=== PATIENT | male | born 1985 | race Caucasian/White ===

== ENCOUNTER 2025-05-06 09:04 | Emergency (ER) | payer BC, SELFPAY ==
[2025-05-06 09:06] VITALS: BP 143/92; PULSE 92; RESP 18; TEMP 36.8; O2SAT 99
--- NOTE | 2025-05-06 09:28 | ED.VIS.LOWEX ---
HPI History of Present Illness HPI Narrative: Patient presents with left knee injury that occurred yesterday. Patient states he was trying to get onto a horse when it bucked. Patient states he was thrown off the other side of the horse. Patient is unsure exactly how he landed. Patient noted pain in his left knee immediately. Patient states it is mainly over the medial aspect of the knee. Patient describes it as sharp. Patient states it is worse with weightbearing. Patient states it is better with rest. Patient admits to some tingling into his knee. Chief Complaint: Lower Extremity Injury Informant: patient Occured/Mechanism Mechanism/Context: Yes fall Onset/Context/Timing Onset: Yesterday Context: Sudden Onset Timing: Continuous Quality of Pain: Sharp Location: Left knee Worsened by: Weightbearing Relieved by: Rest Associated Symptoms Associated Symptoms: Positive for Parasthesia; Negative for Weakness or Loss of Funtion [facility] Medical History Hx of pneumothorax Home Medications ?Medication ?Instructions ?Recorded ?Last Taken ?Type hydrocodone-acetaminophen 5-325mg 1 tab PO Q6H PRN PRN Pain 3 days 05/06/25 Unknown Rx 5mg-325mg #10 TABLETS Allergy/AdvReac Type Severity Reaction Status Date / Time aspirin Allergy Swelling Verified 05/06/25 09:05 ibuprofen Allergy Swelling Verified 05/06/25 09:05 Surgical History History of lung surgery Social History Smoking Status: Never smoker ROS ROS ED Constitutional Constitutional ED: Reports fever(s) and subjective; Denies chills Eyes Eyes: Denies blurry vision or change in vision ENT ENT ED: Denies rhinorrhea or sore throat Cardiovascular Cardiovascular: Denies chest pain or palpitations Respiratory/Chest Respiratory/Chest: Denies cough or dyspnea Gastrointestinal Gastrointestinal: Reports nausea; Denies vomiting Genitourinary Genitourinary ED: Denies dysuria or hematuria Musculoskeletal Musculoskeletal: Denies back pain or neck pain Integumentary Denies abscess or rash Neurologic Neurologic: Denies headache(s) or weakness Allergic/Immunologic Allergic/Immunologic ED: Denies mouth swelling or urticaria EXAM Physical Exam Const Vital Signs: 05/06/25 09:06 Temperature 98.3 F Temperature Source Temporal Pulse Rate 92 Respiratory Rate 18 Blood Pressure 143/92 H Blood Pressure Mean 109 Pulse Ox 99 Oxygen Delivery Method Room Air Positive well nourished and well developed General Appearance ED: well developed and NAD HEENT Reports moist mucous membranes Neck full ROM and supple Extremity Extremity Narrative: There is tenderness and mild edema over the medial aspect of the left knee. There is no bony crepitance or step-off. There is no effusion noted. Range of motion is limited in all motions of the left knee secondary to pain. Extensor mechanism is intact. Strength is 5/5 bilaterally in the lower extremities. There are no sensory deficits noted. Neuro oriented x3, CN's II-XII intact bilaterally, moves all extremities and no sensory deficits noted Sensorium / Orientation: alert Motor Exam: strength 5/5 throughout Psych mental status grossly normal MDM MDM MDM Narrative Medical decision making narrative: Differential diagnosis includes ligament sprain, meniscus tear, contusion, and occult fracture. X-rays of the left knee will be obtained to assess for occult fracture. History & Record Review Additional record(s) reviewed:: Prior labs Radiography Diagnostic Testing: Clinical Impression(s) from Imaging Studies Knee X-Ray 05/06/25 09:57 IMPRESSION: No definite acute abnormality. Correlate with point tenderness. If there is point tenderness or persistent pain despite conservative therapy, MRI would be suggested to evaluate for any internal derangement. Reading Location: [facility] X-rays of the left knee were obtained. There are 4 views. On my independent interpretation, there is no acute fracture or dislocation noted. There is no loose body noted. Radiologist also interpreted the x-rays and agrees. Treatment and Re-Evaluation Narrative: Patient was given a dose of [place] here. Patient was advised of his findings. Patient given prescription for short course of [place]. Patient was instructed to ice and elevate his left knee. Patient was given crutches. Patient was instructed to follow-up with his primary care physician in 5 to 7 days. Patient was advised that if his symptoms persist, he may need further evaluation such as MRI, physical therapy, or orthopedic evaluation. Patient understood and was agreeable with the plan. All questions were answered. Discharge Plan Triage Chief Complaint: Lower Extremity Injury ED Provider: Patrick Orozco Dx/Rx/DC Orders Clinical Impression: Left knee sprain, Fall Instructions: ED Knee Sprain Ligaments Prescriptions: New hydrocodone-acetaminophen 5-325 mg tablet 1 tab PO Q6H PRN PRN (Reason: Pain) 3 Days Qty: 10 0RF Primary Care Provider: Care Physician,No Primary Referrals: [facility] Doctor,Out of [Non-Staff] - 5-7 Days Print Language: Maltese Disposition Disposition: Home, Self Care
--- OUTSIDE RECORDS SUMMARY | 2025-05-06 09:52 | XMS RPT_ITS | CCD ---
Author Organization [facility] Care Team Providers Care Pier Master Name Role Phone Ashlyn Meredith Unavailable Unavailable Bernardo Campa Unavailable Unavailable ANTONI ZAMORA Admitting Unavailable ANTONI ZAMORA Attending Unavailable Provider, None Primary Care Unavailable Provider, None Primary Care Unavailable Drew Medrano Admitting Unavailable Drew Medrano Attending Unavailable Lev Allen Admitting Unavailable Lev Allen Attending Unavailable Provider, None Primary Care Unavailable Christian Martines Admitting Unavaila ble Christian Martines Attending Unavaila ble Provider, None Primary Care Unavailable Allergies Allergy Classification Reported Allergen(s) Allergy Type Date of Onset Reaction(s) Facility (1 source) aspirin Drug Allergy 07-08-2017 [facility] Repository (1 source) ibuprofen Drug Allergy 07-08-2017 [facility] Repository Problems Problem Classification Problem Date Documented Da te Episodic/Chronic Anal and rectal conditions (1 source) Other specified diseases of anus and rectum; Translations: [OTHER SPECIFIED DISEASES OF ANUS AND RECTUM] Onset: 07-27-2017 Episodic Results Test Name Value Interpretation Reference Range Facility Coding Summaryon 12-12-2023 Coding Summary HTMLBase 64 AscqtrawJRs2aXz+PGhlYW Q+FG4DZFVnI21zqAUajY0k D7NOMJlBDneeTHXJCFtSMz LpbmOvOI1sqFKgWTQo IC8+WI9gBJOkNexqgXUfy8 Z7mPB9O64dzq4lTRowjCW9 HFNdAxGwyfooo2sdfJm5KR cuNmluOyBt HBVtnU84LKB7lL21Kq24rI VgaWRxx9tynEp0HkIeWBOg YQG5eWcqQWklc5AoFFDzS3 4mjTKvz6N6 HVDnlByueXGbLbJmwMN9rZ 2pXIodakfif0yrjhbdQlj4 hg98bYTrw2R7lET7G3Zexf F6OJJxjSTc BmbezIDTaV4rasxzi0ydtl elGmHvNGIyNIj2RTk5VAVx aObyZzMzBX75HZS2MYFxlc ZqE7HfGFDx vWfoPmO1e6T2Bd7DE5XUNe ddU4PVAZJCCMpzhAE+PC90 dp65P8KeDokqRcc8FZDfBK T0qOD9oB1o BFXaDQaoy9Z5cQX5B4Suix Jply3cl7lrVXErGKwxB53y dTRzi4Z9GJBnrMU7EUGhvC kmIuDrqP81 Oyc+YLGluSqfc4IoToumb0 cpe6twiPy1TbdaZIOvelXw cQszLOB1i7FnLt6nSBZkiL Y1zIS9pW4q KmOrNqJ1POjnR191TlOllC LuUfvuN18uQ2WxjUO+PHRy Dsz3EQPfnVlkTN0dU9EzWZ RpbmctbGVm eDejAM2qHLUqjsdzNWXtrI 1aIUKdC2q6UhJlYrY0OPel R4OqOCRfuvvkXu35hS4kBg YnGlL7MLmi T9NjrmX2PZQcmNRtIDjtYQ K8T86ov5U2RSUdYFVmFTZ0 pUG6pT3eqWxizqqhkOPgvD sgdmVydGlj RHjaTXbwK618XZMbtYpoBc NvZGluZyBEYXRlOiAgMDQv MDgvMjAyNDwvdGQ+PHRkIH G3hYoqYSSh xHQiHWhqKg8iqIgmuBrpKD 5eMTObndibEEKtjX1gUXDb pZMgxMjwBZ8oHMBqxygon8 50OqPaFCG3 PRFesQVqZ1ZhxS0dPoQoOQ EwFJIlX5UqlJNtMZjkA903 DDfcXiC1GPSlhqMgZ9HdWD FsaWduOiB0 n1N4Nl6Ha2CorgiyK7UnxU ZoEyIwRmsuQRq7K9MiHiut dHI+ZH87IFPoCK95OYa2AV U3tXkjTYzk PELgJ5SyjW6uDkVeSXNkOT RkOyc+PHRhYmxlIHdpZHRo EQbvCZWfSiSolBusAP0eKr 9yZGVyLWNv eEsaoSGrZsFks0maCSJjUL doSJ5fxIvxE0HcoYU8JLUu o5p4Va78C18vP0DnvXG+PG GclDO0pLV8 pQ5lXaDoNyJ0QKkhU383Vk YjaONyJiwii3lef9wzfWl7 OzC5OBFhboUccGtuQAB0m5 VvLk16G27k IHdpZHRoPSIxNSUiIHZhbG dotr0fwB8nCo5+PGNvbCB3 cRS6fA0uPsAnTaC8ZObcC7 49InRvcCIv Bpzdz9dhc8wavNl2RgQgEU DejkXylRzuCHV2x5IvWj00 C0TqtZwdu5BkQoy2il01sN Wlt5U1uLQ1 R1QtHZJarlhfeXLkqYecGO 4tYUJzgrycHZCzvM1eDYUb W1m4FzWqXjP9JTdiM9Qrwq A2VSUceVMc UESuaUFDuY1pqpcvx4xmaq ybWcFcJAEsRRq8HJa8JECv lZnbNmOnTPL2DvJ2SGR6dO HqoY8qcAor uxsdqU0hMbu+EGH8xPUevI JUKA2fMqifrLM+PHRkIHN0 wGseZBrpABHdhE4zXHJhY7 x5QkShZtB8 PSyfL7UcxqD8RFEklFLlKE YtkPROuV4ibgrrs8pfzihj YqDwNUCnNRj2HWg9PIXdhA duOiBsZWZ0 IzR2ZRC6sVRczN8knTzrgi nyuR9oWyt+QmlydGggRGF0 RJz8Z2TiWax2MVTlfFguBW 0ncGFkZGlu Wb6doZmtlMapJR0aHNQdwl trd151UaNzb4vsJJBilXOw JGajJOG7R57iz2A7GQRhZB GzVOH5yMY2 cV0nwIulzwebzUMqpHnjzn JgjSxqKKqsTFcqV137MAJa mMciAiEuNAi0Y7LzBzq0DF YmuDmhLH4e eGKoFXluSy3oxLhbgGpzCJ 1oHEQdzahxc149NiEqi9lt OJAymKDjTLnyLBN4K35ua1 J0EACvRFDd UEJ7wXW0wN2joCelfefywT VmdDsgdmVydGljYWwtYWxp C664FAWpqXolFmQxyZe9V8 ReMtm6ZRUs zZfdNH5ipWCyTCiwGi8gcC kpvMmmCP1wFEXazkzgq048 NhChi9iuAFBomALxVMltNF H0K72vl9Y6 IYQlRIUrVCW7iYS5fW1jyX lnbjogbGVmdDsgdmVydGlj OSodTWlsK980OAPisZbfEf BhdGllbnQg VAkrRSk4Z6ZwDipoqEP+PC 70MDVuAX45wLZbkKAoo8ti jQt6LlNjSGRuBKB1iHvkYM vqy2PnVGCz Z26rxYQgd7O8BQPojTweyL RfBmXrmRT9jI0pDZuqwccq m8hjjrofLxcri2wbpp79gL 61Q83gPFyp ZHRoPSIzMCUiIHZhbGlnbj 9gsX6cWk3+WONnfVA2wGT6 qM8dWMWsFkZ6VFfeW517Pj RvcCIvPjxj z5ohh4iemUw9XuR9GXQwfl LhxBelHAF2t9NjOt77H27w IHdpZHRoPSIyMCUiIHZhbG ashv1usO3y Ii8+GPJgeUK9aRA8oN1wKn VdVvL9JTrcD407NjRomFZv VivuU73dC3YvrOZ+PHRyPj b7SZOukHfz CQ2fcMYiFOgdXj4zNPA7St IgReEiYPwqY0GyZSNcgpit qlawdUR3DRQpKQYnrV95Fu 9udDogMTBw bWGZqO7ucbwnl9ocxgpgSh ObZXBoSCk9GCm8ADVzaSiv PcYgHCH4RlZ2XCQ3iWWjlR 1hbGlnbjog cE0aT5IsGKApzlsuHy85yJ 6fSkUhTiB5PCwpXoe+S1JB TUVSLCBNSUNIQUVMIEpBTU IJWD71XP44 xRRdp6O9jIG8L9QvOZBahl cmkfsseGK5CLEhWOYvuK64 dKTlXAzdVh9yp4L3e487RR RzEHJfvK81 Gl7pdLbkVZTtyAWTtB3fnw gze1dtxcpdYzLgTYDqGWg2 ONl2QXKvtKkcQoDuMTQ0Tw G7DWZ6nETb vW4mrDlhvhushY8fFhu+MD AuWvqdVBl0LTfdzHC+PHRk ZZD1aEcfMAbxKCIekH6yRV VmQ5w4WpPi PkM3OTzkG3UbRFSzkqwjKs 69pY8wQzPsNmB6HYscN0Pl jwG0PGSviLTwSRhrPZH3I8 5mp3Y1VSEg NXVkJBT8nIA7lN5mbTlxcv ogbGVmdDsgdmVydGljYWwt KWvcV863MREpwRijMiY2VH vuVTLoXP12 QJ53mSKxq3F5bXS5D1NhCB MtcyjpxvsnpUA0GXFaIYPk hS37eDLmTBxuGc0hv0A5m3 06IDAuMDUw xJ84Ci3exRacKPNwiQDUgS 5kzdprw0rbttfmVpDaWXUg PQe1PCx6QDMtkCipHjKmGE I0PqK3PGW5 fNTxpH6eyCothdntwP3vWp c+TUFMRTwvdGQ+PHRkIHN0 sSqmMVdaVIBldR2ePNEbL1 h5XuMzGtF3 WYixZ2RjVHXtsnypVs24lD 2sZwWfRsI9NVdcB7AnkkP3 OJTglHDqIJleVJM7P04cf3 Q7CZBmMNNz ZHJ8dIQ1jY2lkFlvprjlrD VmdDsgdmVydGljYWwtYWxp H396DVFkdIckHgZxWLVvNZ 5jeTwvdGQ+ AV65vo01V5HoOwxaIxc9CF KiRXE6yBR0eW0nBNNdZMip v2Y6oGS2W3GgqfTkfk4kq4 xsYXBzZTog K45ngNBit6C6PHYeuOQ5AD AipKxiJdDhkL63Kdz+PGNv xUcib5JeXgums7cpt3elyI x0GqMtYMLu drOglQoaAEI7o3NvGi53R0 9sIHdpZHRoPSIzMCUiIHZh yLnejr3fjZ2sCi7+PGNvbC P2xLF8tO4q JeRaRrV8AIcbB472TlVioB UqVyzhb6djz3xiiBi9ZfNw QBCnqcGjsTxgTGD8z4GbJf 80O7PfeXch k2MsNks2xq79uQBec6M1aU L3Z9ZnGOAbzvsagNAfrIqw HT9qHRSrorrrPABizM4nKY PdY3v5VhWu WkL0EKnoZ3VwjaI2TXVobY EyEFOrhOYNuY9homexs2dr vubvItJqOKNeXNb5BXw5ZM FsaWduOiBs UEG6XmM3WBI2yYTojO5ibF kvvyqbtX6vDtg+VDz9t2lf pNLxIZ3yaHG4RU63MK17sC Rnq4E5lQD0 E4BhYIJkqohwahbnhRK4VH JbQPRyjX97Dg2txIqnDd2m TWRtRBG3DIAnnPPgQ2SuiR 9yOiAjMDAw GMPdW8YtaFUnYIjbB531KO ueFcG5YTWyfgCyL0AkIIRw iEjrWlD7m9M2Uv4HUC72VF 01AB23xMNc g5Z6aHX1P5VeOAVzuajdbr olsNR3GCPeEZOocU88Wl1z zLaqBc7uRKGkBQO0ASFelY TdP2DaeC4h IuYiJWHmFMLwR2CcpGSzYN piJ042TGhvKfP7GVApfuHd G7ZwBIDvxYmvXqO4w1E1Wt 1SRn72QS27 NU30nRJjn8H6rED5C0UsFG DxbihzdloymZV1XOFfTKLw wD01Se7uzAdgNk8lQNBcFM O0CTJeaJVd P3LibV4uTzHqVDHoLTIxP4 OkuPEaVQcgA507YOxbSqS6 UFSsmsMqE2GyTEAhjWjzLi T6t3Q9Se4P BQtctnc0S9BkVilfsQX+PC 26DXAlHK34nFDbwBPak1lu mBw2EnJyVXVtWSP1qDxpFG tnc6HdFLSm Y29 (more content not included)... [facility] Coding Summaryon 12-09-2023 Coding Summary HTMLBase 64 RthvxkxrPPp7zGj+PGhlYW Q+VL0WVRUnQ91pxNMqnA1f H4HJZRmTTneyMQNEHTzRNb BbkpLxQZ3rrFOjIATw IC8+OS7dODUwTfhlkSTwh0 G3zHV5W23wql7mHHsejSR6 JIKdWqCaazcok2kroOv0IX cuNmluOyBt XCVjsI43BWV2uH36Cv85jK IbnJSij9jaxLr2TvWcQWYy IQN0pQtuTUudm1JlLENrD8 6spUTqf2Y6 POBdoJzfoWAqNdPnzJW5eA 3mBAmmedhvr7kxeqzsCip4 jk87hUVmg7H8aZJ2L4Fywh U7BNTtcXQb IgyjyFNOtY5jvftkn3dope naLkFjRQHdODg5MTj0CICx yMipCgHqBW76MEV0NMSynu UyT3AlIOXk mHnbOyF9f1J6Gv1RK6UKJs lmE2OUGXFUIOfiiSW+PC90 lg42D8ZcYbkaZcr5DPMzBH W8zMY7kN7v VUSwICnmd4V0sLV5O8Uzus Gshe8dr9yiHYUuQLyzN10q lKNol4Q9AMJwaNG0WYIgmS nrPqHwxU13 Oyc+PDFgkRkts5SlVivuc7 fwo2epgCb4SyczCTYvdkYg cIdzHLU0g4BkJb0uSTJxbA J4eXG0lU7i JpDzDcL2ETvzO925RxMjrW QgKuudM05qO2XbcJG+PHRy Iwv7YWEbjIusMU5eY0QwQN RpbmctbGVm gXlgJH9uEPYapdflHZQkmX 7rOETeC8n0IpUgTvZ3JTjg F8KnFBLjdvcgLf58gY3cJj IkMtE5GLnk B0DfodT3WNTjaGHiFQqyCZ R5H16uh7A4KPJdNKOhAOR2 eRK5hZ4edZyzaotqxRVyhS sgdmVydGlj ENtoRSwmA197NVTagLlmEd NvZGluZyBEYXRlOiAgMDQv MDUvMjAyNDwvdGQ+PHRkIH W0rYapCAHi xLSpGOapAu3nwSckfAyvGC 0eVLIvtgpdBFXphL6wUGLr xMXjoZodGH7gPHHuamdab0 17IbXmEYE9 CUGyhUAuA1WbtW7zCvUwUX LiRLQiY0KdgMMgIJohC191 UZskMaB7FLSrgiRxV7LjQQ FsaWduOiB0 s1R4Ji9Vk7NkzgbaJ6GqbU ZcDaJvNonyGKx7A4FhVeic dHI+YY70PLZwLM74KBs2RK X2qMwmUOwq TMRnK4LlyV8hFxIyBYZnII RkOyc+PHRhYmxlIHdpZHRo UEhqMWBmCdNlaMkhFO3kTh 9yZGVyLWNv eOqueNPlIzCot6lgLMOoTA muVW4orVaeV6OgtKT7IRTl d6u1Tn77J91nR0AmzOB+PG UxmXT0lBI8 nN9rBpEyBuA1XYvoS667Gi OwcDOiSuqcs0imm7ypnQm5 JvU9NDTaqbRhtKfhRNP3k3 CaDx92K15h IHdpZHRoPSIxNSUiIHZhbG uelm0mhV5dTe3+PGNvbCB3 rJY8fT2bOpGeTyY9FCykL2 49InRvcCIv Gmzfr9fwp6drnMv5NvDnKZ CwscToaPgrJXM4t9AcYl85 K5HfgSevn9ChJbz5cg18hN Vsv5S8vMR8 H6HmBOJmlmfcuTGpvOyoDQ 0kXAPlbrviOIKdvH6tBGJw E2t1MhVaKfV2LRdtS8Jduu G3NPFpoUOy MVJlfYDUuM9eczvcs1iahu euUcLhQTKxLMb9YJl5IKKp zBobUrHkCZI7WgD9RJX5kT XzzL8luYlb pclnrT9aCjb+QCX2tYTpvO QBQB2cYcbmpON+PHRkIHN0 mWttCKclBKAfjL4lXZDyX7 v6AaAqVeQ6 JEzvS2DurnD0SSIgiEBeYL EikLUUaM3yghoxg0ejuegm MkQpDYPaKNw8ZUq7JHJzdP duOiBsZWZ0 TlJ1JWK3zMYkoR8ttJyded zbrL6pCnu+QmlydGggRGF0 HGn2T0MmDio1WWOduBviVS 0ncGFkZGlu Zd9qiCywkOraJF6rWKVxcq jsm395GcAie5auRDDrmYXk RNlrRYO9E82es4X3BANzMR ObJOI3yDD1 vC3nrYfjeginrCBugXntmx AwgGvqBJjpTTcsF631QYNc wZcbHuHnGAw9M1UoBlh3FS ViiOdzUB2j rSKtVWmcVk9whIbpbDapQO 9vXOHurfvxt993AtXif8zl ELHidESyTTewJDT5N68gf1 B3XKLdXDTz SSB8xIH0cP0okIqymeurkZ VmdDsgdmVydGljYWwtYWxp U463VIZtxUksEyGscSo6Y7 XpFuy3OSSw hNpvJP4agHNlEIhnXg1gvR vssHoiNN7iALKachfuv072 JcBpo9leSFQrfVEfWQnuHC C3P94ys0T9 RBMyWPTnTBA9gBP9eP4wgO lnbjogbGVmdDsgdmVydGlj EMriQCfgD569LJPqzEyiSa BhdGllbnQg ADzvPCq7L5BwMvkriVX+PC 77UKNuKJ87vBKrcGOhs9uh bNb3SyMhEYSiUET0tXtmTI dir7UyJZPz Y10ncADby0K6WFXoxWrpjG MdDuBgqOV3qM6xMIimuxla h2erxfftUvjez2vnpa46jC 72T29oVRyo ZHRoPSIzMCUiIHZhbGlnbj 6ibQ8wYh0+YOWptJD5rEF2 xK1hEINkZqD6FXijA486Af RvcCIvPjxj p0kdp0omlIp0DbY3HLImgs JtpSxjUWY0o4NgVf40P02m IHdpZHRoPSIyMCUiIHZhbG zvep4afL9p Ii8+RMWgxLU4qLO6pV8vOm AgGbA2JYyvQ313BrYjwSMl ImzfU06dT3ZtcLK+PHRyPj x6QFZwwAag RA0qdLVjKMuqQi3nJXQ9Fk ZyVyEqYGieV1ZkMYCatbye svlvbXY9GOLuJXRsrB36Zh 9udDogMTBw cNZKsA2dmoytr0okqpvdCa IdDNYvEVp4CKo2FPLcuIql LyUqHTN7ZiW6NES7jYFttT 1hbGlnbjog nJ5pW2OxYWAguwgzAd26eN 3bCwQtJaR8RWcjIle+S1JB TUVSLCBNSUNIQUVMIEpBTU AJFP42PT50 uJAei7A8sAZ8R0IuMOIxez ummbuywII3KSKeEZIosX44 dHUaQQklBx4fc9Q6h429MQ JzFQFrwI81 Oy0rqCouCBZimTYYaY3zyd zlr3ppazamQjZmAOXzHFx5 FZz5JVLgzDpkQzHyCYA2Hu M9QBJ9tFWt eS9buYkdmfmmiZ2zIrz+MD TbTrrjKKp0WSqhkRW+PHRk NVW8cLviDVcmVGGrjE4cMD TaP9e7RbVz GaU8IKsiU1LhGHPvkjljOh 86aL3jJsSrDiV9ZHgkO1Gu kdI8TLHarHHySOxaGJK7A3 9ed0D2JOBg RYBiDDW6gOB8gW8nsZsacj ogbGVmdDsgdmVydGljYWwt EJtzO721HIUvkVfxVdU0FH gvZZMxED53 RC14oKXaa1J4dIG8W4AeJA UhvbnbaswioTL8UQMtKJEm aM77vQYpLBiqWb1ba3B2f9 06IDAuMDUw uE62Aj2ibUskREMhtSFRgH 8zsfhio7ygaedaQvCnHVJm YLz3OFj3WINmxQziRbMeAU J4UdD2RIJ5 wSHujI3bgXrvyzecaH6lXj c+TUFMRTwvdGQ+PHRkIHN0 xUluCQovIAJldU0nCJXxJ1 g4MrOqKcT5 LKrjQ9DiLEZwtopqDa63dW 2wSzZhDvT2LNtiG0ZmyrJ9 OTOxyRXoADueFQM7U11fn3 N4JQMqUVTo TVJ1uIM9aX0tmTzjfgkflU VmdDsgdmVydGljYWwtYWxp L287DWLlzRseFz4NFN60IL 83G0RpNmck dGFibGU+PHRhYmxlIHdpZH BnFOuyXKXgMvCujRizVN1v Br1rIECsRDKpxPxcsCJiHk Act9kiQGPm QUwaFW5wmFjvI1DgpJF2VV Izl1d4Vq10R13sL1KdqFW+ CSHxpYQ7rZV0kK5eKuJrZv C7YJhcB498 FfYxrWFoEqhtb7qud2kxxL f5UvTaRYHkrmDsqNbsXTW6 v7MgTt33H43fYBqrZLZiMC IyMCUiIHZh tIpgtr1mnB5pXz6+PGNvbC D0tCY2mL6xLnPpFhU5EDia E618AiUlaISzRhyrA64uY1 JvdXA+PHRy Jeo6GJZvdTlaII7leLMmJV xpNb9iMHG4GxPsQzJfMTgx G0TfKCDgwwfsqmxnzWX2MC JxKRFkiO09 Ai8rfDvvJm2cGGXaJLZ9AV ZxwQRgX9IwhU6qIvHlJBOi VYKdC7DrdRPhHXvjL310UZ wqEpD0XSRc txEjV7KkCMUbdLypQdY3w5 A7Ku6HvTfoaULgOU6fGtBh KVj2P2XfSvm5NRStaJtrHO 0ncGFkZGlu Xu3mtAgbgKyfBW0aYAVwfx ffl069MzPdl4ixATUwvJBb EYssERG1K75le3M7NEHvUT EfVRZ5bKB0 rD5trErigcuyvBQmuYgmnm MxnDpwUEipOWglT357QTQo kFjzZvMHIlg7B5GkBie6SI HzgXdcSU7v zNBrLRmcOg9rpTzcyAbbKB 4uTUUdzzfic828SyCzd8km XQUbeTNzPZobNQP3E51dd6 C0SLByNLDv KCJ2tNP3jX7zbAkgtmxdkD VmdDsgdmVydGljYWwtYWxp F582GDLvoKlyCh5GRmz3D3 FuDru8NPHj qVghAD2rrQWjNAbpDx6apS berMjsTD9nUPQasfrtt933 JhVbt4rfTCAtyBOdWQcsAH H4K27ku2V8 XOQoGABjMBH1hBR6rE2cqY lnbjogbGVmdDsgdmVydGlj TPjdYHytK966USMraJzsSv BheWVyOjwv dGQ+TC56ip34G9VjOwxpBj e7OQEjSLU5rKJ8dE1cZGOl BEmsi8L3dRB9Q6GvpvIduu 6jo6rbYTZx ZTo (more content not included)... Normal [facility] .Auto Diff on 12-05-2023 Auto [place] % 9 % Normal 1-12 [facility] Comment on above: Performed By: #### 1 [id number], [id number], [id number], [id number], [id number], [id number] ####[facility] (DEFAULT)[address] [place] [address] Baso Abs# 0.1 x10 Normal 0.0-0.2 [facility] Comment on above: Performed By: #### 1 [id number], [id number], 9552911, [id number], [id number], [id number], [id number] ####[facility] (DEFAULT)[address] [place] [address] 71717 Basophils/100 WBC (Bld) 1.5 % Normal 0.2-2.0 [facility] Comment on above: Performed By: #### 1 [id number], [id number], [id number], [id number], [id number], [id number], [id number] ####[facility] (DEFAULT)[address] [place] [address] 23153 Eos Abs# 0.2 x10 Normal 0.0-0.4 [facility] Comment on above: Performed By: #### 1 [id number], [id number], [id number], [id number], [id number], [id number], [id number] ####[facility] (DEFAULT)[address] [place] [address] 01301 Eosinophils/100 WBC (Bld) 2.7 % Normal 0.9-4.0 [facility] Comment on above: Performed By: #### 1 [id number], [id number], 2325724, [id number], 52067199, [id number], [id number] ####[facility] (DEFAULT)[address] [place] [address] 25496 Lymph Abs# 2.5 x10 Normal 1.3-2.9 [facility] Comment on above: Performed By: #### 1 [id number], [id number], [id number], [id number], 87529958, 9193387, [id number] ####[facility] (DEFAULT)[address] [place] [address] Lymphocytes/100 WBC (Bld) 33 % Normal 14-48 [facility] Comment on above: Performed By: #### 1 [id number], 5905225, [id number], [id number], [id number], 0153658, [id number] ####[facility] (DEFAULT)[address] [place] [address] Larimer Abs# 0.7 x10 Normal 0.0-0.8 [facility] Comment on above: Performed By: #### 1 [id number], 0831908, 7903507, 6851517665, 92794661, 9728920, 5149785247 ####[facility] (DEFAULT)[address] [place] [address] Neut Abs# 4.2 x10 Normal 1.5-9.2 [facility] Comment on above: Performed By: #### 1 [id number], 0249960, 0971096, 3483012916, 83890112, 6761646, 7085693380 ####[facility] (DEFAULT)[address] [place] [address] Neutrophils/100 WBC (Bld) 54 % Normal 44-88 [facility] Comment on above: Performed By: #### 1 [id number], 8295039, 2937967, 7741752208, 53696318, 5734756, 3780099367 ####[facility] (DEFAULT)[address] [place] [address] BNP.on 12-05-2023 Natriuretic peptide B (Bld) [Mass/Vol] pg/mL Normal 0.0-100.0 [facility] Comment on above: Result Comment: BNP results greater than 100 pg/mL are considered abnormal and suggestive of patients with CHF. Higher BNP concentrations measured in the first 72 hours after an acute coronary syndorme are associated with an increased risk of , myocardial infarction, and CHF. Performed By: #### 1 [id number], 3281167, 2083516, 6758429090, 21122538, 8588487, 4325405911 ####[facility] (DEFAULT)[address] [place] [address] CBC w/ Auto Diffon 4 Erythrocyte distribution width (RBC) [Ratio] 13.5 % Normal 11.5-15.0 [facility] Comment on above: Performed By: #### 1 [id number], 2341170, 3471807, 7046959964, 48508279, 6489967, 1785271101 ####[facility] (DEFAULT)[address] [place] [address] Hematocrit (Bld) [Volume fraction] 42.0 % Normal 34.8-51.9 [facility] Comment on above: Performed By: #### 1 [id number], 8097393, 0505999, 2184943161, 84350156, 7960578, 5765901891 ####[facility] (DEFAULT)[address] [place] [address] Hemoglobin (Bld) [Mass/Vol] 14.3 g/dL Normal 11.8-17.7 [facility] Comment on above: Performed By: #### 1 [id number], 2440371, 4397156, 6572549395, 54420772, 7827061, 2215209199 ####[facility] (DEFAULT)[address] [place] [address] Man Diff? Auto Invalid Interpretation Code [facility] Comment on above: Performed By: #### 1 [id number], 2259458, 0702597, 2588231000, 20443529, 8678814, 4694433287 ####[facility] (DEFAULT)[address] [place] [address] MCH (RBC) [Entitic mass] 30 pg Normal 24-34 [facility] Comment on above: Performed By: #### 1 [id number], 6816637, 0829788, 7514113483, 87110570, 8124637, 1387785165 ####[facility] (DEFAULT)[address] [place] [address] MCHC (RBC) [Mass/Vol] 34 g/dL Normal 26-37 [facility] Comment on above: Performed By: #### 1 124133795, 5338767, 0400657, 9076798710, 44989863, 7924992, 4921143702 ####[facility] (DEFAULT)[address] [place] [address] MCV (RBC) [Entitic vol] 89 fL Normal 81-100 [facility] Comment on above: Performed By: #### 1 017288304, 3259018, 1587701, 6370142855, 45261159, 2982193, 3721862882 ####[facility] (DEFAULT)[address] [place] [address] Platelet 262 x10 Normal 138-427 [facility] Comment on above: Performed By: #### 1 218677406, 7196942, 0541299, 6991563149, 20204839, 5806434, 0426105179 ####[facility] (DEFAULT)[address] [place] [address] Platelet mean volume (Bld) [Entitic vol] 7.1 fL Normal 6.3-10.2 [facility] Comment on above: Performed By: #### 1 831846335, 4645939, 9034440, 5734841209, 57683905, 7238530, 6364931037 ####[facility] (DEFAULT)[address] [place] [address] RBC 4.72 x10 Normal 3.70-5.30 [facility] Comment on above: Performed By: #### 1 342047756, 4355344, 1354415, 9305798696, 84570296, 3299362, 4113786200 ####[facility] (DEFAULT)[address] [place] [address] WBC 7.7 x10 Normal 3.5-10.5 [facility] Comment on above: Performed By: #### 1 269647588, 0186042, 8945971, 8541611111, 14493901, 6800370, 1002642962 ####[facility] (DEFAULT)[address] [place] [address] Standardon 12-05-2023 eGFR Non AA >60 Invalid Interpretation Code [facility] Comment on above: Performed By: #### 1 360737595, 7935717, 7531682, 3050525113, 01591908, 2086009, 3617506735 ####[facility] (DEFAULT)[address] [place] [address] eGFR AA >60 Invalid Interpretation Code [facility] Comment on above: Performed By: #### 1 167086289, 4296252, 7258382, 8023066665, 55790368, 5514412, 4220885255 ####[facility] (DEFAULT)[address] [place] [address] Albumin [Mass/Vol] 4.3 g/dL Normal 3.5-5.0 [facility] Comment on above: Performed By: #### 1 472084612, 3022299, 2691000, 1825332440, 63266065, 9180216, 5734932662 ####[facility] (DEFAULT)[address] [place] [address] Alk Phos 57 IU/L Normal 32-91 [facility] Comment on above: Performed By: #### 1 412044103, 6033444, 8894125, 5720707922, 18945312, 2602165, 5670682980 ####[facility] (DEFAULT)[address] [place] [address] ALT [Catalytic activity/Vol] 21.0 U/L Normal 17.0-63.0 [facility] Comment on above: Performed By: #### 1 107155093, 5608550, 1980608, 7571597931, 19060126, 2695461, 7603267700 ####[facility] (DEFAULT)[address] [place] [address] AST [Catalytic activity/Vol] 27 U/L Normal 15-41 [facility] Comment on above: Performed By: #### 1 800605994, 1152044, 3788253, 2557964403, 57400183, 1540863, 4561132239 ####[facility] (DEFAULT)[address] [place] [address] Bili Total 0.6 mg/dL Normal 0.3-1.2 [facility] Comment on above: Performed By: #### 1 982257190, 5995971, 5675404, 5639462827, 32054787, 4387724, 0495564303 ####[facility] (DEFAULT)[address] [place] [address] Calcium [Mass/Vol] 9.2 mg/dL Normal 8.9-10.3 [facility] Comment on above: Performed By: #### 1 575194820, 9781048, 1484046, 8232968367, 98336355, 3656981, 6861633509 ####[facility] (DEFAULT)[address] [place] [address] 31358 Chloride [Moles/Vol] 102 mmol/L Normal 101-111 [facility] Comment on above: Performed By: #### 1 487747551, 4486735, 5586853, 9116698938, 80488751, 5351192, 4349785075 ####[facility] (DEFAULT)[address] [place] [address]58 CO2 [Moles/Vol] 25 mmol/L Normal 21-32 [facility] Comment on above: Performed By: #### 1 442001924, 7753234, 7171290, 0644766348, 35507733, 8981211, 9710910680 ####[facility] (DEFAULT)[address] [place] [address] 18157 Creatinine [Mass/Vol] 1.18 mg/dL Normal 0.90-1.30 [facility] Comment on above: Performed By: #### 1 737658364, 0969427, 1328955, 9694249996, 97276233, 6877982, 6541700284 ####[facility] (DEFAULT)[address] [place] [address]3217 Glucose [Mass/Vol] 105.0 mg/dL Normal 74.0-118.0 [facility] Comment on above: Performed By: #### 1 417309320, 2561201, 5735106, 6586574204, 37128798, 6883488, 0433199473 ####[facility] (DEFAULT)[address] [place] [address] 29658 Potassium [Moles/Vol] 3.6 mmol/L Normal 3.6-5.1 [facility] Comment on above: Performed By: #### 1 277733487, 0016607, 9894061, 3398308902, 62068621, 5446257, 5712658743 ####[facility] (DEFAULT)[address] [place] [address] 49671 Protein [Mass/Vol] 7.9 g/dL Normal 6.5-8.1 [facility] Comment on above: Performed By: #### 1 535306297, 1796768, 7195504, 0127541610, 94846606, 2052711, 4247360990 ####[facility] (DEFAULT)[address] [place] [address] 56354 Sodium [Moles/Vol] 135.0 mmol/L Low 136.0-144.0 [facility] Comment on above: Performed By: #### 1 268013218, 3931425, 1925624, 3756331584, 59862207, 4554279, 6779950427 ####[facility] (DEFAULT)[address] [place] [address] 61666 Urea nitrogen [Mass/Vol] 24 mg/dL Normal 8-26 [facility] Comment on above: Performed By: #### 1 115036506, 5818032, 5378448, 5377194874, 84357874, 4181215, 2264799891 ####[facility] (DEFAULT)[address] [place] [address] 53104 Albumin/Globulin [Mass ratio] 1.1 {ratio} Low 1.4-2.6 [facility] Comment on above: Performed By: #### 1 641308486, 0599460, 8279202, 1044961225, 88403361, 6503196, 6936187751 ####[facility] (DEFAULT)[address] [place] [address] 10505 Anion gap [Moles/Vol] 11.6 mmol/L Normal 5.0-19.0 [facility] Comment on above: Performed By: #### 1 876736382, 9342157, 8212141, 7072646562, 16922928, 1571765, 6682073762 ####[facility] (DEFAULT)[address] [place] [address] 99950 Globulin (S) [Mass/Vol] 3.6 g/dL Normal 1.5-4.3 [facility] Comment on above: Performed By: #### 1 817708067, 2258061, 1322527, 6165855116, 20280190, 8424286, 1064256994 ####[facility] (DEFAULT)[address] [place] [address] Osmolality 274 mOsm/L Invalid Interpretation Code [facility] Comment on above: Performed By: #### 1 231104378, 2217239, 1698720, 6357799457, 70462705, 5583655, 2885284037 ####[facility] (DEFAULT)[address] [place] [address] Urea nitrogen/Creatinin e [Mass ratio] 20.3 mg/mg High 4.6-16.2 [facility] Comment on above: Performed By: #### 1 586938888, 4287664, 8512490, 8235610398, 30005768, 0731512, 5206384691 ####[facility] (DEFAULT)[address] [place] [address] Breakpoint Chem Normal [facility] Comment on above: Performed By: #### 1 839787229, 4688866, 6168548, 3684314913, 56939177, 5035635, 2945931753 ####[facility] (DEFAULT)[address] [place] [address] ED Clinical Summaryon 2023 ED Clinical Summary [facility] - Emergency Department [address] [place] [address] ED Clinical Summary PERSON INFORMATION Name: BASSEM DAWSON Age: 38 Years Sex: MALE : 1985 MRN: Acct#: Visit Reason: Shortness of breath; Chest pain; CHEST PAIN, SOB Arrival: 12/05/2023 18:58:57 Discharge: 12/05/2023 20:18:00 LOS: 000 01:20 Check In: 12/05/2023 18:58:57 Checkout:12/05/2023 20:18:00 Address: [facility] [facility] [address] PCP: Provider, None PROVIDER INFORMATION Provider Role Assigned Unassigned Lev Allen MD ED Provider 12/05/2023 19:03:19 Jamila Manuel RN ED Nurse 12/05/2023 19:04:55 VITALS INFORMATION Vital Sign Triage Latest Temperature Tympanic Temperature Temporal Artery 36.9 DegC Pulse Rate 59 bpm 59 bpm O2 Sat 97 % 98 % Respiratory Rate 18 br/min 16 br/min Blood Pressure /104 mmHg /104 mmHg MEDICAL INFORMATION Medications Given: Medication Dose Route Sodium Chloride 0.9% intravenous solution 1,000 mL 1000 mL Initial Volume 20 mL/hr IV Left Antecubital Fossa aspirin 162 mg Oral doxycycline (doxycycline hyclate) 100 mg Oral Allergy Information: No known allergies PHYSICIAN DOCUMENTATION DISCHARGE INFORMATION: Discharge Disposition: Home Discharge Location: Home PATIENT EDUCATION INFORMATION Instructions: Nonspecific Chest Pain, Adult; Hypertension, Adult, Ejru-kn-Uzzw Follow-Up: With: Address: When: Follow up with primary care provider Within 3 to 5 days DIAGNOSIS: 1:Nonspecific chest pain; 2:Elevated blood pressure reading Patient Understands: Yes - Patient/family/caregiv er verbalizes understanding of instructions given Comment: Normal [facility] ED Clinical Summary [facility] ? Urgent Care [address] [place] [address] [id number] Clinical Summary PERSON INFORMATION Name: BASSEM DAWSON Age: 38 Years Sex: MALE : 1985 MRN: Acct#: Visit Reason: SOB, CHEST PAIN Arrival: 12/05/2023 18:44:25 Discharge: 12/05/2023 18:55:00 LOS: 000 00:11 Check In: 12/05/2023 18:44:25 Checkout: 12/05/2023 18:55:00 Address: [facility] [address] PCP: Provider, None PROVIDER INFORMATION Provider Role Assigned Unassigned ANTONI ZAMORA ED CJ 12/05/2023 18:50:02 VITALS INFORMATION Vital Sign Triage Latest Temperature Tympanic Temperature Temporal Artery Pulse Rate O2 Sat Respiratory Rate Blood Pressure / / MEDICAL INFORMATION Medications Given: Allergy Information: No known allergies PHYSICIAN DOCUMENTATION DISCHARGE INFORMATION: Discharge Disposition: Discharge/Transfer to Another Hospital Discharge Location: [facility] ([place]) PATIENT EDUCATION INFORMATION Instructions: Follow-Up: DIAGNOSIS: Patient Understands: Comment: [facility] ED Note-Nursingon 12-05-2023 ED Note-Nursing Pt ambulatory back t o ED rm 4. Pt C/O SOB and chest pain that started a few days ago. 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 Pt is A/Ox4. Pt has a HX of have two pneumothorax in 2008.Pt is stable with call light within reach. [facility] ED Patient Summaryon 024 ED Patient Summary [facility] - Emergency Department [address] [place] [id number] PATIENT DISCHARGE INSTRUCTIONS Patient Information Name: BASSEM DAWSON Age: 38 Years Date of : 1985 Reason For Visit: Shortness of breath; Chest pain; CHEST PAIN, SOB Arrival Time: 12/05/2023 18:58:57 Primary Care Physician: Provider, None Attending Physician: Lev Allen MD Comment: Visit Diagnosis: Diagnoses This Visit Chest pain ([id number]) Elevated blood pressure reading (R03.0) Nonspecific chest pain (R07.9) Shortness of breath ([id number]) The Pharmacy at [facility] is open Tuesday through Tuesday from 9A to 6P and Tuesday and Tuesday from 9A to 5P Prescription Information: If you have been given a prescription for narcotics, seek immediate medical attention if you have any difficulty breathing or any sudden status changes such as confusion and sleepiness. If you or anyone you know is experiencing suicidal thoughts, mental health, alcohol and/or drug addiction problems; contact the [facility] 28/03 Crisis Hotline -Text 4HXLD vs 006179. If you received any narcotics, sedation, or any other medication that causes drowsiness for the next 24 hours, unless otherwise directed: ? Do not drive a car. ? Do not operate machinery such as power tools, lawn mowers, drills, sewing machines, or stoves ? Avoid alcoholic beverages and drugs for allergies, nerves, or sleep ? Do not make important personal or business decisions or sign any legal documents With: Address: When: Follow up with primary care provider Within 3 to 5 days Medication Information: The exam and treatment you received today in the [facility] Emergency Department were for an urgent problem and are not intended as complete care. It is important for you to follow up with a doctor, nurse practitioner, or physician?s assistant baseball coach for ongoing care. If your symptoms become worse or you do not improve as expected and you are unable to reach your usual health care provider, you should return to the Emergency Department, we are available 24 hours a day. For those patients who have received Radiology results, the interpretation of your X-ray as given to you by our Emergency Department physician is only a preliminary report. The Radiologist will review your films and if there is a change in the diagnosis you will be notified by phone. Please make sure you have provided a working phone number so we can reach you if necessary. In the event that you had a lab culture while you were a patient in the Emergency Department, you will be notified by phone if there is a need to change your antibiotic. Please make sure you have provided a working phone number so we can reach you if necessary. [facility] Emergency Department has provided you with a complete list of medications post discharge. Please inform your interactive media marketing specialist/provider of your visit and for further instruction on these medications. Any specific questions regarding your chronic medications and dosages should be discussed with your primary care physician(s) and/or pharmacist. New Medications [id number], [address], [place] [id number], [phone] doxycycline (doxycycline hyclate 100 mg oral capsule) 1 cap(s) Oral (given by mouth) 2 times a day (scheduled) for 10 Days. Refills: 0. Additional medications on your home medication list not specifically addressed. Please contact the ordering physician if you have questions about these medications. ibuprofen (ibuprofen 800 mg oral tablet) 1 tab(s) Oral (given by mouth) 3 times a day (scheduled) as needed for pain. Visit Information Allergies: Substance Reaction Symptoms Type Comments No known allergies Drug Vital Signs: Vitals and Measurements this Visit (last charted value for your 12/05/2023 visit) Vital Signs This Visit Temperature Temporal Artery: 36.9 DegC Peripheral Pulse Rate: 59 bpm Heart Rate Monitored: 57 bpm Respiratory Rate: 16 br/min Systolic Blood Pressure: 128 mmHg Diastolic Blood Pressure: 80 mmHg Mean Arterial Pressure, Cuff-Calculation: 96 mmHg Mean Arterial Pressure Cuff-Monitor: 96 mmHg SpO2: 98 % Oxygen Therapy: Room air Measurements This Visit Height/Length Measured: 180.34 cm Weight Measured: 81.65 kg Weight Dosin.650 kg Body Mass Index: 25.11 kg/m2 Problems List: Problem Onset Comments No Problems found Patient Education Nonspecific Chest Pain, Adult Follow-up with your primary care physician to review this emergency department visit. Return to the emergency department for any worsening symptoms. Chest pain is an uncomfortable, tight, or painful feeling in the chest. The pain can feel like a crushing, aching, or squeezing pressure. A person can feel a burning or tingling sensation. Chest pain can also be felt in yo (more content not included)... Normal [facility] ED Patient Summary [facility] ? Urgent Care [address] [place], [place] [id number] PATIENT DISCHARGE INSTRUCTIONS Patient Information Name: BASSEM DAWSON Age: 38 Years Date of : 1985 Reason For Visit: SOB, CHEST PAIN Arrival Time: 12/05/2023 18:44:25 Primary Care Physician: Provider, None Attending Physician: ANTONI ZAMORA Comment: Patient Education Medication Information: The exam and treatment you received today in the [facility] Emergency Department were for an urgent problem and are not intended as complete care. It is important for you to follow up with a doctor, nurse practitioner, or physician?s assistant baseball coach for ongoing care. If your symptoms become worse or you do not improve as expected and you are unable to reach your usual health care provider, you should return to the Emergency Department, we are available 24 hours a day. For those patients who have received Radiology results, the interpretation of your X-ray as given to you by our Emergency Department physician is only a preliminary report. The Radiologist will review your films and if there is a change in the diagnosis you will be notified by phone. Please make sure you have provided a working phone number so we can reach you if necessary. In the event that you had a lab culture while you were a patient in the Emergency Department, you will be notified by phone if there is a need to change your antibiotic. Please make sure you have provided a working phone number so we can reach you if necessary. [facility] Emergency Department has provided you with a complete list of medications post discharge. Please inform your interactive media marketing specialist/provider of your visit and for further instruction on these medications. Any specific questions regarding your chronic medications and dosages should be discussed with your primary care physician(s) and/or pharmacist. Medications to Continue That Have Not Changed Other Medications ibuprofen (ibuprofen 800 mg oral tablet) 1 tab(s) Oral (given by mouth) 3 times a day (scheduled) as needed for pain. Visit Information Visit Diagnosis: Diagnoses This Visit No Visit Diagnoses Documented If you received any narcotics, sedation, or any other medication that causes drowsiness for the next 24 hours, unless otherwise directed: ? Do not drive a car. ? Do not operate machinery such as power tools, lawn mowers, drills, sewing machines, or stoves ? Avoid alcoholic beverages and drugs for allergies, nerves, or sleep ? Do not make important personal or business decisions or sign any legal documents Reason for Visit: Allergies: Substance Reaction Symptoms Type Comments No known allergies Drug Vital Signs: Vitals and Measurements this Visit (last charted value for your 12/05/2023 visit) No vitals and measurements documented Problems List: Problem Onset Comments No Problems found Major Tests and Procedures: The following procedures and tests were performed during your ED visit. Laboratory Radiology Cardiology Viruses or Bacteria What?s got you sick? Antibiotics only treat bacterial infections. Viral illnesses cannot be treated with antibiotics. When an antibiotic is not prescribed, ask your healthcare professional for tips on how to relieve symptoms and feel better. Usual Cause Illness Viruses Bacteria Antibiotic Needed Cold/Runny Nose NO Bronchitis/Chest Cold (in otherwise healthy children and adults) NO Whooping Cough Yes Flu NO Strep Throat Yes Sore Throat (except strep) NO Fluid in the middle ear (otitis media with effusion) NO Urinary Tract Infection Yes Antibiotics Aren?t Always the Answer www.cdc.gov/getsmart GET SMART Know When Antibiotics Work U.S. Department of Health and Human Services Centers for Disease Control and Prevention May 2014 Normal [facility] Magnesiumon 12-05-2023 Magnesium [Mass/Vol] 1.93 mg/dL Normal 1.80-2.50 [facility] Comment on above: Performed By: #### 1 [id number], [id number] ####[facility] (DEFAULT)[address] [place] [address] PTon 12-05-2023 INR Coag (PPP) [Relative time] 0.95 {INR} Normal 0.91-1.11 [facility] Comment on above: Performed By: #### 1 [id number], [id number], [id number] ####[facility] (DEFAULT)[address] [place] [address] PT 9.9 second(s) Normal 9.7-11.8 [facility] Comment on above: Performed By: #### 1 [id number], [id number], [id number] ####[facility] (DEFAULT)[address] [place] [address] TnI HSon 12-05-2023 Troponin I High Sensitivity 3.2 pg/mL Normal <=20.0 [facility] Comment on above: Performed By: #### 1 [id number], [id number], [id number], [id number] ####[facility] (DEFAULT)[address] [place] [address] Urgent Care Note- Provideron 12-05-2023 Urgent Care Note- Provider Patient: BASSEM DAWSON Age: 38 years Sex: MALE : 1985 Associated Diagnoses: None Author: ANTONI ZAMORA Patient is a 38-year-old male presenting to urgent care with complaint of chest pain shortness of breath. Patient states over the last few days he has felt short of breath with chest pain going from the left side of his chest over to the right. 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 Denies getting short of breath with normal activity or exerting himself often. States he is having shortness of breath even just walking up stairs yesterday. Denies any recent cough or factious issues, denies any fevers. He states that he is concerned about possible issues in his lungs such as pneumonia, does admit to previous history of collapsed lung. States he was adopted and is unsure of family history. I recommended further evaluation in the emergency department secondary to his complaints. Patient indicated he understood was in agreement. [Electronically Signed on: 12/05/2023 18:52 EDT] ANTONI ZAMORA [Verified on: 12/05/2023 18:52 EDT] ANTONI ZAMORA [facility] XR Chest 2 Viewson 4 XR Chest 2 Views EXAM: XR Chest 2 Vie ws TECHNIQUE: PA and lateral view of the chest HISTORY: Chest Pain COMPARISON: None. FINDINGS: The heart and mediastinum are unremarkable. The lung burnette are clear of any acute infiltrate, effusion or mass. No acute bony abnormality. ____ IMPRESSION: No acute pulmonary disease. Final Dictated by: Adonis Marr MD Dictated DT/TM: 12/05/23 8:18 Signed (Electronic Signature): Adonis Marr MD 12/05/23 8:19 pm Technologist: ISIDORO [facility] Coding Summaryon 06-06-2023 Coding Summary HTMLBase 64 RuytaqojFQw2hOx+PGhlYW Q+RW5YDTTnB72rpUAohM2l I7CTYNiMMcigPVUZMYyIIi BlizPfAN1hcZFqIGYp IC8+GX7eJYVfOyjssBMot8 G8sRJ4Y43cxf3xDXjmqRV2 PUQaFmDbtghtp2dwfUn7EM cuNmluOyBt DLSzuJ55JMU7eO99Ok67kC DidGZzc1mbmGk0LuVuJXJv KOS2jNlbQSibh5DuVYRaH5 2iuXPzi2I0 YAIzqIuobGZeTtFkyWS6jX 9lVVkbeyaii4vzqufvIru2 kq51cPBxz2Y8jPI8N2Xbqp Q3PXPguTOu JwpisRXWbC6fywcts7jadf jwJxRfNAGlUCz0RYx9LPKx lKtwDcUxQA73MZO3FCXpxs NxV2LpKFBc cJsbBwD4o4N1Um3JH7EYVe unQ9BBQEGEATqdoEG+PC90 pt40J6IhDgiyGsi5BAUmFG J3qEW4eY1w SIStPQznk5V1rWV8C2Olbl Mupx5zh7koSOZkYUnuV92l oQLdk2B9SOWbpNI8ISQgiG adSnUyxR62 Oyc+RXIurVosn2JdYaown6 eck2zvnRd3RtsuGWTklgOy aXztQIY3h5LxUa5yTWQmuP E9pSD0pU0x ZxSyCaL6PFhrS750TvImsP DgJtthS20wQ2OvyQU+PHRy Xfq7XNPwwDvbKE9kD5EhLF RpbmctbGVm oTznZC7gKTDnczthWHQinY 8qEYEzK4d4ErTuZbP0MMqd T7QiEWFjnxlvZy55hF5cCn MiPvR8MIrp F3QcdkA6KPRsjKEiXBmmVG X7A96ms5J8OKWaNAOgSSR5 wVN9rL1eiNnnhtpotVTdmD sgdmVydGlj IPkpJWbmZ450GLTliIovSz NvZGluZyBEYXRlOiAgMTAv MDIvMjAyMzwvdGQ+PHRkIH S9jPtzWSUs vMYyODywLg7haOivxZmgLM 4gQSIqhuzsMJHxrR3iGLHc dZPdmEioFP9zQIFiycaxo2 15HyVqXMO2 YBYxvDHsH3SwaN6kBzDbQX DxGKEuV0XedJQqUNhvY313 QJwbSxM0AQMkeiLmP3ImAL FsaWduOiB0 p1W4Gc0Zf1EshaefU6KvzT SqVkVdHvyjSJj8D8CaZlkm dHI+VQ33NCLoME54OZh3NH M5iBwyALem DOIeC0XpjM1vFaVrAKSsDP RkOyc+PHRhYmxlIHdpZHRo NUeuCEHsVoQgxNmrNI0lYv 9yZGVyLWNv cAggmXDrPlRpj5kmHCKxPC xnVT7xpArrM7UpjTQ1QUDf a7m5Us31R55tH8TcvMP+PG HzgBP4gHD2 mU4yWiHfGbZ5GVqtN949Us XgcNYnShnah2dvn6mswTx9 OrH9AAObhwLdyCeyYCA0n0 MhJr34X20n IHdpZHRoPSIxNSUiIHZhbG hmwx0vfA4hTs0+PGNvbCB3 wKF2vO0dOjDcFaE4DRwrT2 49InRvcCIv Gcldu6crf0jojAg7MmFeGR SvjsFsgToqBPA6b4NvFu27 U9JxiQypl7FuVaw1ln99mY Zdv5K7yOV8 D9DcCGRfzehmuMIfeTnpQL 0oLTVypingKPNqnW6yKOXx A5m1EbLgDkF7BKqnJ1Tttj I1REOjrRTf KXRdbRLVdQ3ymnamv5pnid drMiZoGYHiTQt8RBf0TLRf uLkmOoTnFIB4WyM9CJE2rH EreT4utPhk fkhecM6zYtf+GTF6oQXcoN DKKD5bFaqnbTN+PHRkIHN0 pCqaDVfwHUXgyR6eEGLaY7 j1XmZyFoF6 ABhnA3ScfrZ6MGYdtWTaMF KwxWRAkJ2fpipma5utbwph RhIbIQHwNOc8KYj9XAMltD duOiBsZWZ0 JxD4JDD9jAYpnG5ouAeelr iccD2jYnt+QmlydGggRGF0 TCu8S2SwLqf7SRXeqHxiGT 0ncGFkZGlu Dh6eoCvfkHyrDW6pLXEswj lfz676XhAqx9ihEQCsfTEb WHuePPU1L82vn5Q4ASSwCU RmRRY8hAX0 cI3puFkyvpsczBHgiMmnpr MtnTigQXkkTYhoV409QMRm iIygEfDpQMw3G1QqEhw1IO LezLteOF1t tFUaCYjxZr7rdMoeaNbbZE 4cGTBrkmdcf818NeZsa3lt OQRmvJCuNDmkLJV1E91wa5 C3MNAfEWZg HKW0sUE6cS9liLhdgnzovP VmdDsgdmVydGljYWwtYWxp C176OGQuxSyrSsWecHk4J3 EvZnt2RUAm oLykDO9fyQEcZZirZw9qaY jpxIilZB6fWCGtojzxr534 UaHbx4paHRPlzFFmVPyjXQ G8I79rl0W2 XHEhDCYtKPV1mFK6gE2qgC lnbjogbGVmdDsgdmVydGlj FHsaOCyxP408MNYtaDnpOi BhdGllbnQg HFocSRq4H5YxVfaszDQ+PC 55YRNbYE50tRCrnYGme5di oOc8ItEzZCToDJW6wAphCJ eai9GgGQUu M84hfYQrv2X3CIBisWqbxL PcJvEalZG3iG9mOQxmbgiw a1kaemvgOdyun5fwjd14kL 23C76vMKln ZHRoPSIzMCUiIHZhbGlnbj 3ydJ5sWy9+ILKuyTK8jFQ0 gM0cXOSvGoK9EQffQ918Yd RvcCIvPjxj s5zoa1cjsLy4IrO9FBMnpm CmfQakKQF3n6XzXz79I11v IHdpZHRoPSIyMCUiIHZhbG ylid4rlR1f Ii8+FQEibHB7fRX8uS1oHh HpSzB9GOoeD835LmDsnDMm YsgvC85zQ3LnzHV+PHRyPj j2PKUvyAsq HD4ccTPuQGfjXl0rRND2Wn OpMtIdYWxcP1UvQYEmgesx rraplRS9JHGiHZGaxJ21Dh 9udDogMTBw oCJEbA3xqafko7fajziyDk AqZSBzMCm2VZc9NHEvpQzk ZeDkEOM3ArA5JHO6sNLddN 1hbGlnbjog vE7sZ5QtFOFzzaxeCo99gG 3qGfPsKpI7DHfiFoo+S1JB TUVSLCBNSUNIQUVMIEpBTU QRHT35IO20 pYUbq3T5sTO9A3GxQYVbni rewpqpbCE3MFBwOURnyG85 iHLxCPxgCv5la0D7p841UK JbIUSonE55 Gs0zkOnpDPVqtWODeQ4oms dnb9akvzztFyGjWGOpVSr3 UHp0ZQNnfGmcLgTzAVJ6Ly N1FVZ0eLFd dD3zlVpzknucwA4dJsh+MD MqAnkmWGp2ZDqlfIE+PHRk HBD4tBzsPMgdAKTstG4eML UcJ5n8NsHq OxN1ZEirJ5KoEWBznmhqYg 39xC2tBhDfFcY5YTigN0Ph beF9OFFeiPPwMMloBYE2M5 9cr4V7MCGf VZMrOXY9aHD0fN5puXrtwq ogbGVmdDsgdmVydGljYWwt PNsyC322JJKxwDhaUoQ0GI buDGCnSV81 FX01uPNwb6W9qHP5D9PaTN FpxiyvmizawTC1QGZzZCBt aZ36xIXqLRkxCl4wb2N1v4 06IDAuMDUw rT92Eu0deCwzMDLkkBQUqY 8zuyqgc1ehydxpLpBpACCj ZNc0IVy7ZKSyvBcmYsOlPM R2RuL7XWW6 xKFuaU6djRpnzqagmU3pJx c+TUFMRTwvdGQ+PHRkIHN0 fEjvJFdaHNYhsC8zCDPjA4 v3IiVoMrF5 GLloA2HySUAirpvqIo52zK 6nZhUnOoA5PYkuA9NcspZ4 ATRgqASdXXqhNFB2Q51oj3 Z1HRAsYMLs JYP7pTL8dK8lwDvnaulrzZ VmdDsgdmVydGljYWwtYWxp T799OZZabYsrBk7VPH93EN 95H2RnTdeg dGFibGU+PHRhYmxlIHdpZH UpZKlbXUTzHxIncEhnVN8t Yt5lSNCvTKWgfJkjrTPtSk Nnp0hdYDSo ZMhxZO6gsDqyN2OjwFN0OF Dmt2e9Xe68C89pY0BchDN+ TSEqdPV5yYT3bJ6wVkWiZz A3TRzqE534 MvJjeGWwBvwyj0zzk7bxeV s3ClNgJBRewjVsxRlbJYJ8 s3CwTq66F51gTYitCBMsJE IyMCUiIHZh wCzqgy6muS1qHv5+PGNvbC E1uRK4mC3pIwYdXqB5MUqm U431RyFjqKCmAbknN17jY5 JvdXA+PHRy Tix9MKLvlUjnJB8qiNJwZA kuXz8yPCA4CjRqDcXuNAgo H2SgQOLmtwzicafriVM3XD CiVUKbjL00 Cq9fbLraKe6uIZHnUYI0SE RnjAKyY9WkxE5iOoOjWTYs XRDjE6ZmjESaLAehE922IO znTyJ9RFTe ppDkC7JzJJXvsWyuMyS5a6 N1Ub2RuMqssMYsIZ9jLmKl JGn5Y1HyQad3YWBrrCorUU 0ncGFkZGlu Pw0iyMjlzSdkRG3xFUKlqz bjd320AcHsd2kwOEVnmCEe FHmnCAP7N52ys7A0RJFcHR PjVMA7zEA7 sY3toUgkxziqxDScgCkjyj FsdPfrCTuiFFofA855UHWm yUwePrZARuz8T6QlPhr3JD DorIwnRX4l bUQoTGdiRq7ylGworTyqBR 9xQYWdkfqqi938ZrTpb3os GBQqzFAvPVuqXJP1B31rd3 O3HRStDQMz UKT4hEN8iG1esXbzgzmjpF VmdDsgdmVydGljYWwtYWxp S221KOXpqMslJd8MTvj3D5 IvUgu5IJOt cVxsNS1ucUDsRHqlEt3fkI jhvYayBF7hOOMozrwjk104 LpQre4hwFPTrfKFsIVjbED A2W19ig9K0 CSTqJMLvKFZ6aTB5hR9bcT lnbjogbGVmdDsgdmVydGlj MVglNLjcP776RAKobBkiBe BheWVyOjwv dGQ+ZT01vy85I2IrZtreTe l6VRAmWEL9gPZ9pX7oLYHf FQjsh5G2oAP7G1WxdpVvnd 2cg4uaNHOl ZTo (more content not included)... Normal [facility] ED Clinical Summaryon 2022 ED Clinical Summary [facility] ? Urgent Care [address] [place] [address] Clinical Summary PERSON INFORMATION Name: BASSEM DAWSON Age: 38 Years Sex: MALE : 1985 MRN: Acct#: Visit Reason: UC - Dental Pain; DENTAL PAIN Arrival: 05/11/2023 18:38:38 Discharge: 05/11/2023 19:25:00 LOS: 000 00:47 Check In: 05/11/2023 18:38:38 Checkout: 05/11/2023 19:25:00 Address: [address] [place] [address] PCP: Provider, None PROVIDER INFORMATION Provider Role Assigned Unassigned Christian Martines ED PA 05/11/2023 18:42:45 Lidia Juan RN ED Nurse 05/11/2023 18:48:25 VITALS INFORMATION Vital Sign Triage Latest Temperature Tympanic Temperature Temporal Artery Pulse Rate O2 Sat 100 % 100 % Respiratory Rate Blood Pressure /88 mmHg /88 mmHg MEDICAL INFORMATION Medications Given: Medication Dose Route ketorolac 60 mg IM Allergy Information: No known allergies PHYSICIAN DOCUMENTATION DISCHARGE INFORMATION: Discharge Disposition: Home Discharge Location: Home PATIENT EDUCATION INFORMATION Instructions: Dental Pain Follow-Up: With: Address: When: None Provider [address] [place] [address] With: Address: When: [address] [address] Business (1) Comments: Diagnosis is dental pain from possible infection or implant. From evaluation you have pain and swelling in the localized area of your mouth. We are starting you on antibiotic mouth rinse, you are already on antibiotics take these as prescribed. May take Tylenol ibuprofen to help with pain relief, do not take more than 4000 mg of Tylenol in 24. Follow-up with your own dentist, or I gave you multiple dental options with information pamphlets, in the next 3-5 days for evaluation. Follow-up with [facility] dental clinic, , You may also follow-up with [facility] . From Adult Dental emergency, Call Return to emergency department/urgent care for worsening symptoms or concerns, spiking high fevers, redness going up or down the side your face, swollen eyes, any questions. Follow-up with [facility] for reevaluation. Contact them by phone and they will schedule you, and guide your treatment plan. Return for worsening symptoms or concerns. DIAGNOSIS: 1:Dental implant pain Patient Understands: Yes - Patient/family/caregiv er verbalizes understanding of instructions given Comment: Normal [facility] ED Patient Summaryon 023 ED Patient Summary [facility] ? Urgent Care [address] [place] [address] PATIENT DISCHARGE INSTRUCTIONS Patient Information Name: BASSEM DAWSON Age: 38 Years Date of : 1985 Reason For Visit: UC - Dental Pain; DENTAL PAIN Arrival Time: 05/11/2023 18:38:38 Primary Care Physician: Provider, None Attending Physician: Christian Martines Comment: Patient Education With: Address: When: None Provider [address] [place] [address] With: Address: When: [place] [phone] Business (1) Comments: Diagnosis is dental pain from possible infection or implant. From evaluation you have pain and swelling in the localized area of your mouth. We are starting you on antibiotic mouth rinse, you are already on antibiotics take these as prescribed. May take Tylenol ibuprofen to help with pain relief, do not take more than 4000 mg of Tylenol in 24. Follow-up with your own dentist, or I gave you multiple dental options with information pamphlets, in the next 3-5 days for evaluation. Follow-up with [facility] dental clinic, , You may also follow-up with [facility] . From Adult Dental emergency, Call Return to emergency department/urgent care for worsening symptoms or concerns, spiking high fevers, redness going up or down the side your face, swollen eyes, any questions. Follow-up with [facility] dental clinic for reevaluation. Contact them by phone and they will schedule you, and guide your treatment plan. Return for worsening symptoms or concerns. Dental Pain Dental pain is often a sign that something is wrong with your teeth or gums. It is also something that can occur following dental treatment. If you have dental pain, it is important to contact your dental care provider, especially if the cause of the pain has not been determined. Dental pain may be of varying intensity and can be caused by many things, including: ? Tooth decay (cavities or caries). Cavities are caused by bacteria that produce acids that irritate the nerve of your tooth, making it sensitive to air and hot or cold temperatures. This eventually causes discomfort or pain. ? Abscess or infection. Once the bacteria reach the inner part of the tooth (pulp), a bacterial infection (dental abscess) can occur. Pus typically collects at the end of the root of a tooth. ? Injury. ? A crack in the tooth. ? Gum recession exposing the root, and possibly the nerves, of a tooth. ? Gum (periodontal)disease. ? Abnormal grinding or clenching. ? Poor or improper home care. ? An unknown reason (idiopathic). Your pain may be mild or severe. It may occur when you are: ? Chewing. ? Exposed to hot or cold temperatures. ? Eating or drinking sugary foods or beverages, such as soda or candy. Your pain may be constant, or it may come and go without cause. Follow these instructions at home: The following actions may help to lessen any discomfort that you are feeling before or after getting dental care. Medicines ? Take lkjl-oqp-ompawpo and prescription medicines only as told by your dental care provider. ? If you were prescribed an antibiotic medicine, take it as told by your dental care provider. Do not stop taking the antibiotic even if you start to feel better. Eating and drinking Avoid foods or drinks that cause you pain, such as: ? Very hot or very cold foods or drinks. ? Sweet or sugary foods or drinks. Managing pain and swelling ? Ice can sometimes be used to reduce pain and swelling, especially if the pain is following dental treatment. ? If directed, put ice on the painful area of your face. To do this: ? Put ice in a plastic bag. ? Place a towel between your skin and the bag. ? Leave the ice on for 20 minutes, 2?3 times a day. ? Remove the ice if your skin turns bright red. This is very important. If you cannot feel pain, heat, or cold, you have a greater risk of damage to the area. Brushing your teeth ? To keep your mouth and gums healthy, brush your teeth twice a day using a fluoride toothpaste. ? Use a toothpaste made for sensitive teeth as directed by your dental care provider, especially if the root is exposed. ? Always brush your teeth with a soft-bristled toothbrush. This will help prevent irritation to your gums. General instructions ? Floss at least once a day. ? Do not apply heat to the outside of the face. ? Gargle with a mixture of salt and water 3?4 times a day or as needed. To make salt water, completely dissolve ??1 tsp (3?6 g) of salt in 1 cup (237 mL) of warm water. ? Keep all follow-up visits. This is important. Contact a dental care provider if: ? You have any unexplained dental pain. ? Your pain is not controlled with medicines. ? Your symptoms get worse. ? (more content not included)... Normal [facility] Rec[facility] 023 Urgent Care Record [facility] ? Urgent Care [address] [place], [place] [id number] PATIENT DISCHARGE INSTRUCTIONS Patient Information Name: BASSEM DAWSON Age: 38 Years Date of : 1985 Reason For Visit: UC - Dental Pain; DENTAL PAIN Arrival Time: 05/11/2023 18:38:38 Primary Care Physician: Provider, None Attending Physician: Christian Martines Comment: Visit Diagnosis: Diagnoses This Visit Dental implant pain (T85.847L) UC - Dental Pain ([id number]) If you received any narcotics, sedation, or any other medication that causes drowsiness for the next 24 hours, unless otherwise directed: ? Do not drive a car. ? Do not operate machinery such as power tools, lawn mowers, drills, sewing machines, or stoves ? Avoid alcoholic beverages and drugs for allergies, nerves, or sleep ? Do not make important personal or business decisions or sign any legal documents With: Address: When: None Provider [address] [place] [address] With: Address: When: [facility] [address] [place] [address] Business (1) Comments: Diagnosis is dental pain from possible infection or implant. From evaluation you have pain and swelling in the localized area of your mouth. We are starting you on antibiotic mouth rinse, you are already on antibiotics take these as prescribed. May take Tylenol ibuprofen to help with pain relief, do not take more than 4000 mg of Tylenol in 24. Follow-up with your own dentist, or I gave you multiple dental options with information pamphlets, in the next 3-5 days for evaluation. Follow-up with [facility] dental clinic, , You may also follow-up with [facility] . From Adult Dental emergency, Call Return to emergency department/urgent care for worsening symptoms or concerns, spiking high fevers, redness going up or down the side your face, swollen eyes, any questions. Follow-up with [facility] for reevaluation. Contact them by phone and they will schedule you, and guide your treatment plan. Return for worsening symptoms or concerns. Medication Information: The exam and treatment you received today in the [facility] were for an urgent problem and are not intended as complete care. It is important for you to follow up with a doctor, nurse practitioner, or physician?s assistant baseball coach for ongoing care. If your symptoms become worse or you do not improve as expected and you are unable to reach your usual health care provider, you should return to the Emergency Department, we are available 24 hours a day. For those patients who have received Radiology results, the interpretation of your X-ray as given to you by our Urgent Care physician is only a preliminary report. The Radiologist will review your films and if there is a change in the diagnosis you will be notified by phone. Please make sure you have provided a working phone number so we can reach you if necessary. In the event that you had a lab culture while you were a patient in the Urgent Care, you will be notified by phone if there is a need to change your antibiotic. Please make sure you have provided a working phone number so we can reach you if necessary. [facility] has provided you with a complete list of medications post discharge. Please inform your interactive media marketing specialist/provider of your visit and for further instruction on these medications. Any specific questions regarding your chronic medications and dosages should be discussed with your primary care physician(s) and/or pharmacist. New Medications [id number], [address], [place] [id number], [phone] chlorhexidine topical (Peridex 0.12% mucous membrane liquid) 15 Milliliter Oral 2 times a day for 7 Days. (swish and spit; do not swallow). Refills: 0. Additional medications on your home medication list not specifically addressed. Please contact the ordering physician if you have questions about these medications. amoxicillin (amoxicillin 500 mg oral capsule) 1 cap(s) Oral 3 times a day for 10 Days. ibuprofen (ibuprofen 800 mg oral tablet) 1 tab(s) Oral 3 times a day as needed for pain. Visit Information Allergies: Substance Reaction Symptoms Type Comments No known allergies Drug Vital Signs: Vitals and Measurements this Visit (last charted value for your 05/11/2023 visit) Vital Signs This Visit Temperature Oral: 37.3 DegC Peripheral Pulse Rate: 90 bpm Respiratory Rate: 20 br/min Systolic Blood Pressure: 148 mmHg Diastolic Blood Pressure: 88 mmHg SpO2: 100 % Oxygen Therapy: Room air Blood Pressure Method: Automatic Measurements This Visit Height/Length Measured: 180.34 cm Weight Measured: 81.65 kg Body Mass Index: 25.11 kg/m2 BSA Measured: 2.02 m2 Problems List: Problem Onset Comments No Problems found Patient Education Dental Pain (Insert (more content not included)... [facility] Coding Summaryon 01-03-2023 Coding Summary HTMLBase 64 DjfylbptMYy1uLu+PGhlYW Q+QC0ZHHXsC45plRRqcT2U L5sQPO2YNUWQVBILGQ5ULD 0oaVM4YLdzW1OtzlQh YrekqGUsVU92UVj0OTZ3wO eaLAnrdR4ttLLjP3f1HaHj GZ81vS91VGkjQZDaVgT8Ja ZpbjsgbWFy Z7ivZhCjvBNrOhd+PHRhYm xlIHdpZHRoPScxMDAlJyBz tFegCR6aJm1kNJAvLLZzdP xhcHNlOiBj q5zbTZOiISrcKM3ybLlhV9 SwsRD8DSCwn2z0Ny06uEW+ FVWqFQX6bCpmBOlrz576It Nvg9iyDMA5 bZFhUIccGVI9B80az2V3MJ ZsSNQuHEP4gQB5fJ7fsArv isnxJ0VztSLmFoT6QWH5yJ IbhN7fqDor xnclxN8cQtw+H93KNK7LFR FQOI7SNcn6D6VvAaftqIG+ WY18REQiHJ09uSYslAFba3 euqMw1ItTz OQElJEX7aTckZWgii1QfSJ ItU52ltEWev0P4TGXvpVih zTAcWwTgsEM6tF2aJWgipq zzt8befbaj Nwxxa0uzhx27wW73X16uPT ipXMEjLMN9XJXwKEVhzCxu jb7qfI3ePa6+JAdcw1uhg5 wngLb8UcAp OYJuruYbeJqzLPP8z4SxXk 11K8QlaFfgt7PuBdx5ao88 fCRxm9C8eLD6UPnePTCjgS 4tVYbwUvQ4 RTKqOvBuyR40gZDgFOmmTi 6ajDoevFkoDR3dYHMycbgf LVCryQ1lBLRblHCpoAllAC 4wNTBpbjtm f791SoHkVOW0VSNayRYaO8 BrrY1vMePjAYNmYLWfX1Hy bICcRRflS333WDixFuQ8VV OpywFfD6Bp CJAsuRscXiB7s6V7Dr9Fy4 KpagblJSZ4KTjvLMI8NdAb XwTkOvH5R9SeBzv8WCWmwC foSO7yI4Hz HNXkrmhgvcyuiKR3ILKgYG RdeN11rKStSAgmQp5zp3O9 c748RRUqDWNrvS64Qb3zqS ogMTBwdCBU sI7zcjgkv0tptzwzPgDyUY DeIFy3QVj5YGAyhSjiYoLi TWT3RaM1GAU0jJObbL3pxA uqufjncE2s Oyc+D75thA2zQZE6XCV0hn rnUCAmciPqIX75RL48K6Hb PjwvdGFibGU+PGRpdiBzdH bqMM3mJqZs p3zfa2JgUZmkV3NePHAkDF wlTgs2GCRvVEG1sGZ4dG2y RSSqVOjly2S6dBP3F1Cxch Rbwl0rf8vn JEBfICfxY31kdPTih6P4RU QdoZB9CKWkcTioQeMfiL86 Oyc+MHNddNgqm2LaFznyc9 sjf8hnfFr7 CwAqITZgguXrlBehUTP4k3 TyWa27Y78pTFftHOOlOXJp TXKkGVUsbPqwci8svJ4lPt 8+PGNvbCB3 fPW9kS6fMKMzOdU8JCunN8 03LpJoaRVsXktkj9vff2uz dWq4GgTvOMXmfzLcgBkgUX K7x6VnRp57 L68yZSluLNQlFYGoCHJqNO SywXfwmr7ljR4oPv1+PC9j e9vyex86lG80xGN+PHRkIH N5nJcnWQcp YASluR5iFDlrVkB3DNRgQf MphF16hYOlIBhiKw2koWyn iAzxGD8bXDUugeuok336Im Gxx8wbWAZc uGAlGYdyZTX0W80uc4W0TA DvUSQjBRO0cFT7kV6biQpj bjogbGVmdDsgdmVydGljYW dnCRalF962 IHRvcDsnPlBhdGllbnQgTm LeZZp3J4AxDgv6WBSmsBie QE0alYYuPEtaHw1kyFopbO fqIH8wHMFo fkebn452FyIxg2foOGPmtT SfCQinJIZ6H08ks8W4DEQg CCGmJXO9rEE0xW6hiUsazu ogbGVmdDsg odAqoSkeHMbrDIycM343CV RvcDsnPkJpcnRoIERhdGU6 SV25KN03pCAla4D2gOA4Z0 BhZGRpbmct giuozPO2NZQbZAAwqS45Dc 0xbNqbMv1cEICpYOV3RKOv xKUhH4NgyM5qDbKxTWFaTH NzM1NkaZRf WEymI082FRymFyI5ZOSksz SsH6UtGYYmtVvbMxU8x4P3 Rt1AE9A4RP58AL60yCIkb7 P1uYA0O6Cq HJOpotlqpdmvmXO4QKVlNQ LczH96Ki9fxCexYz1kMZAf AOF2QGLqoTQlX0KbaB1dBa AjMDAwMDAw L4UwgWMrVEhvO916LWmbGr Z5YJBykyPeC8YyIIYwfMju RkA9a9P7Bg4SAIi2UC22NR 45fUDjt3O8 sOF4O3TbCGCobcspewcdvL A4FJEqHMCdrX14Ki4qtVsh Jm1lHYDfJCT8DITmwSObD9 VkaE5rVzPu OEZlVNBxA7QdpWOcCJucP0 89NRxuCfA5WNXvvnTwF2Cz CMEocIzjUjY3h0B5Jt9DBE HwBF58YGI4 xTK3VE23SD63M2GxGgxifR FibGU+PHRhYmxlIHdpZHRo ILtqCAZbGhVrmAlaSG6eGr 9yZGVyLWNv sNvweZJuBfLif0aaOFRzDR ehLS6qfBnzF6IwhQM3YFZc e9x3Or04C45uL7AdmVZ+PG ScdYE5oQB1 kD0kTmVnPbO0WXhwN096Sz McdGFbPiprr9qew9jajOt5 VuP2CEJmwyIsuVbeVNJ9a1 GwCi41V11o IHdpZHRoPSIxNSUiIHZhbG krje9hhV0tIy3+PGNvbCB3 zQC2cK6eQiAdJzM6YNilV6 49InRvcCIv Gbxzg1cla2vgkLu1IrPyHX ApbpBteFblJVS8f2MjWm76 Z1FnoOlmt2ZrBdf4kk94bK Tlf7V9wSI7 M5DyGNMvjjlpoDVfxOroDM 6aLFRgzfbxLUEtuW2wNJRp W1e6TgDcLwH4MFivT5Gtyy M7UKShkXKc QLckBTP9Q06tu8K4UBZnKX OqVMR6bHQ9kF4bfBisioud bGVmdDsgdmVydGljYWwtYW mcS535MKLc xTrnOOYbfP7uHQGrlRVebV tdZV3sQSOwnpyjDgkVZV7F EvvbMRwIMSFLVMDBQG1INk wvdGQ+PHRk NYK7cHqzSJbfHMYavG9wDN CrC9u8UnReYyT4WVlaH9Hb MRUlgbbuTh56fT1wKkQeZx K6EMmoQ7Ru dnX7JVCbhVStUKtqSHK1T7 4af9V2OGRtYDOzHDK5uWI1 jO1wqDsiegvtqHHbzQjzjx VydGljYWwt KPtqH522CCOfeHvzPyS9Ys G8ElA2LVQ5Y0CmRle3AWAi lBphOX3knHFxVUitHd6pgZ uxxMfaBF5t DHFwzvfjJGMsfM4aVOFtnQ QssFraHF4nFZEusgoio045 McBmBKJ3PBLuaTZzW1WhsI 9yOiAjMDAw ADViV5RpbHPpNAnnC084IO ilKeZ0JPJgvzViJ1JkANSk pLryMiO4y1Q2Gt3uKKIDHE FyczwvdGQ+ SKRgJIE7vMpeAZnjVAWodV 9tELSaX8n3YbNvWqI8ZOuo D2UoCSCtkgjdOc99iY9iNk KtTlV2PXbv R9DxssR2BIVqoRZrGQhkNG L5P41vj6M4LQNkCPMzSMV9 fUW9lE5imTtwhbelzWYisA sgdmVydGlj HUmvZXzqL335UUYtgFjlLf 2PURB0W3RlYub7UVBjyBvd AW4mqLAfOXlgHv8vlBhdsF xyDE5jUSAw inzoLJIrzF0lLFAyrBUrnX xhID0hOVQippphl989BqFt ORX9PGJlwEIlA5BdjB3fBq AjMDAwMDAw J3YxpWLbPLzhM458BLahFy S4UZWjeuFkU5VxFUHcmIib WgG9o9R4Qk1IqFAkA6ZiS8 d9X8SvGhlh dHI+IS15SMAjID70eQBvmU Pmv0tpaAc5TvBvWNTvNCO2 xZxrXIswi6XaBLTsH75hiV Ixo9Y0ZHSg iGvtfKRqVqOnwMO9lF8pYI xbevdxw7uyatabAmmal2sm ar73fS32P84jHNftLWHmJK IzMCUiIHZh eLvmoa3liW7fWp8+PGNvbC W0vOR0gJ3dMoHqUlH7VTlg B037NrXiqCYhJajhq4hdt6 qqcZj7QwGg KSVwmyChxMhwXSQ3w8FvBi 69K92uWKtsAUTfHPNlDEWu LWJnqWpjnu3ygP6xOs9+PC 4lr6lcfd36 sD32bRC+UYZnKDV5wMhdFV tsBROyyM8hJRuxHyV0OLXa HpCrtP59pHQsPDpeDk7axZ gxxMbaQL2b LBNxlxufw732EgOvy4usXH CyeNOfUHcwSUL9L11cb8M3 VWShIEUhQHU0qPD0lP6yhC lnbjogbGVm dDsgdmVydGljYWwtYWxpZ2 77FDWfeQknMpXktLCxE6rq ztSPLW8zDkavwFV+PHRkIH H4iDxhEWuj ESVjtN0qOJBqO1n9CsUaUc G2SKupL5YhutT9DHRbuKCu ZYOzrSSXsV9zgjydj5ifes ogIzAwMDAw DLs1LCv0OGYbpQhoRkTtNR K2RjY8JGY2hIQjiK8exMel fziimS6sErw+RklOOjwvdG Q+PHRkIHN0 xTwzFJhyNXFiqU4lHREoC7 x7CjXiLiM2BPoxA8SomjU7 QCGoxKSjVWZieZNTlS3vnp oxx4emurna YrTjXCGrXZe2FOr8JQGsqA bkLlTlVAQ1NcI0ZGY6dVEt dQ8jaDtihhmymV0eGiv+TV JOOjwvdGQ+ EKUmLGT5oKdaGFuaPYVnxN 7hCDAtR4j6HcWcBxL7ZRzr J9DxakE0SPFolUPdBNEotA WKxY2sfdit l5vqkqdpQaVdGLCdVOx8ND j4AQSjpKwgWvImEGJ7YcJ9 OUS0mSYrzC4sdVpdwgepjN 9wOyc+UGF5 OJR8JG22YY11Q0BuTmnhpO FibGU+PHRhYmxlIHdpZHRo SXumRCOyIqWpjXsbSW6yAe 9yZGVyLWNv bGx (more content not included)... [facility] Coding Summary HTMLBase 64 DhqlwcykILu3jSn+PGhlYW Q+NE5SXFZiL13xxBCspP0H U5vGRC6SLNPSCQKQGY5KRA 7plDN6YMjlU9WoehMe MjpzpHFvAV43FYz0HYG3vF wmWJmvaJ2pqGAkE7q7UySx JS94nN09RPxrWVNcNzN2Qa ZpbjsgbWFy L3uxQiEsiULiGow+PHRhYm xlIHdpZHRoPScxMDAlJyBz iZlaNB3mIy3uNABkQUSeaY xhcHNlOiBj r7odAQVwBYvvHO1ppGijP8 TwgVJ0KEPwu2e3Rz85wCT+ ATTvDCH4iIzmSSvzl450Ol Npp6ckKVW8 eCZpMTntNTC0H42ii8F5IF UyFAYbLSJ6wSW6xU6vqGde mtxvE7YkoUCcDgU7LUY7pT XvwT1iqLyh kudnqQ3rSxp+M31DCF1GCP OUZH9FZex8N8PjAwiebZW+ IU84CZUvKL90kKIvxLTfw3 lwmNj8CwAw ZNRyZOU6hLaeYZvfd3YbPJ HfV71phLObi5F1ZFTirApx xMCmLrCipVX5nK5dRMahzp wwt8mmcehr Easar0dyad23rU21Z05qXS dxUBUtUUT9STLyBBPjyWlh gd4xrL8jOy5+KMeie9rwu0 lrkGr5BfCh AXNejaHxuIclPED9i2MoVv 43O8QfwVtht6KbMhe7yn79 gGYpr7J8vFE0XZmkTJBpnY 7cCNujHlW8 TNNlQjZbnW24cAKcRFwhRf 0yhUxtcGvlTR0dYJHfpodz XWCnwH7yHYWqqAHgdOkbUN 4wNTBpbjtm p766ObApLLD9FIOxyFFqL0 DrvL4pIsFrVXZaBRStY6Vf eILmFBbuS491HSchWkI3NJ LtjjBzK8Jh LDNwtAqgDbK5g2R0Ah2Jm9 WonjacBUJ0FPgcVIU2OsIl ZyJkZdX6M4ZbRkz1DAQbdA svJR1mI9Qw JLHlzajhsfzqjPY8RQHvWX IviT39pWCfMCkoHv2hm4O0 p462UWJtOSVxrM65Rj9xxF ogMTBwdCBU eU7knovnz8fernknLzVkEV NnHDs8MWk8PUWbxWozBrZi KBP1CeP9QNF2aQPzdH4mnM yilmwsfT9g Oyc+R01qtW4mIYA7TZI4zr zlZPQzwaMrNB38JA59R6Es PjwvdGFibGU+PGRpdiBzdH bmXV6fPeMb y4zis7WbPAweP0PxMJLnRA tgHdb1ICTbNWO4dKP1zK9e FBXkETbqt0R7xOI5G4Pkct Dzcf5ok6dq BMDqSRahN62hgDEyz6Z3XO DkfCI5OARuvCeyHaChzX58 Oyc+JTZpfVgeg9UmFrtwu3 vux5facDd2 JtKzRQXtrzRxtJodXYK1h9 BeRi37G38pUKkzTHNbVRTe JRVrCSRqqCycgm3sjC1yNx 8+PGNvbCB3 dEL4bZ8vVQVaCcI6QVtaS5 10CcTliBKnScruq5nvg5ue dXg2SxJiPEEcfuDnvPgqHV R1t4HyGx96 P99cSFlqXOIoYLMgGHQhTU AefLmcws6ztL1tCo3+PC9j c5nhiu06bQ89oTD+PHRkIH V5jMusMDqr HYRnyN0kAUexCuQ6ABXbKn VcoJ93aMFqCQgsBe7imYcn fAyfUT1kIBDtzyfkg734Ai Rei5ovNOBv bZKjLDvsYRB6W63xs1D7JQ JqAXXkOME4lTQ1lG5htJzq bjogbGVmdDsgdmVydGljYW wyTVfbL595 IHRvcDsnPlBhdGllbnQgTm EgUJd8M5UyAee8QPWifZob VS5wxOTxCFleIo0yzBebtG ttYA9yKZNp ibvhd236AtWoy7jxNLNuaN PyRCaoWKN0M05mb8H8RQEe GCWzXZO2xBV0iA4ffQrqho ogbGVmdDsg qtMvkYxhIEndWRydY630GZ RvcDsnPkJpcnRoIERhdGU6 ZR79ZW35nYSxk8T1gPD4H9 BhZGRpbmct owocbFJ9TQEzBHFhbP07Af 6nhCfaQn7eRHAhNXX3OKXe xQFfH0NwyT3pMkNjLOOrXB WiF3EcsIEp ROglH549FKphFvI2SDXoye LcN4JuYKJzfDhgIpM7d9K4 Tv0LQ7A2RX55IA54oRGjr6 O2qHH8O4Rx MRAdugpslibvvNG9ORIeTJ NifN40Jv9fbZpeOx3lZWSh LQA3WXEhzGYhQ9UjtV2sFl AjMDAwMDAw Y0OrjBHsUJyeO800XZriJf Z6WSAoglDuW3RfUVXrjIrg ZvZ2s8C5Oc5OSXb9JE83YX 96uTHtg0W7 hFP6E3QaQECktrqhfmiukH W8HIHgWOCagJ17Jr0gxCgw Gu4eVHJgVQR1APKgiWExT6 IxsS0aLjDt REHkCPVeP6AtfWCjNGjnT4 99XWddFeH3IZEspzQgB6Ei DUJjbUjhVaO0i6Y4By9OFH AfQT42DYT2 vTF6GS06WY31K4DtHejruP FibGU+PHRhYmxlIHdpZHRo XQyrAIUtKbYoyOnkCO4sYv 9yZGVyLWNv jWcguANmQpJrx7skNCFmWZ lyBC6hhXhhW0TomLA2FSAq y0j5Go93K05oH6DgcJN+PG ZanOO0aGC1 yI9oRrUmOnW1LLhaV485Xn DspPRyLkuyl3gun7utkJv1 FfV3YMFeskGkbCmkNPS6f0 WkUc82J85m IHdpZHRoPSIxNSUiIHZhbG nwfv9xvF7jGq9+PGNvbCB3 lMO9xJ7yReHvYnC3OEysU0 49InRvcCIv Lmzys3xmn2isvPg2AqMhIJ AiekIccHthBAH7a8NgFq79 R0QcjGkmw2IvFsb6wl43zB Rxk3B4eDZ1 A6OoVREgjjzphSLstHzzJK 8jFSMufhhlDMObiV1tSMRt L3p7KwSyIlI5WHcfO9Knhc O0PHCszGGv VXbhJFG0B67dv2Y0IRZwZD DeCJG6kOI6aA5bjOvxsyyg bGVmdDsgdmVydGljYWwtYW vzF354EDLw pOqaPTKkeE1lYPFrwGNipW wqRL6wJUVqtcgzPcyJXK3E SznvXCzYKBKFQTHEEK4FRw wvdGQ+PHRk QRZ2zBbkFWmzNAIxcO4wWI GvC6n7IkFtRcU2RVzvU3Vf FWYvbkosDa44iH2mTuQzMj Q9AKgcU0Dx dkS7VRBmuGIrYVedAMO2N1 7ki5G1WXWcGKDxCUS5pJY8 tB9cbNvumaoxgBXxdUoenb VydGljYWwt MAhuQ129VTKlaCsrYiU2Lu E4VgQ3ZFX0Q4HeBgg7ZQUh eQcnZU6uxBFbRGcoJv9zhG ddeOdrQM5k ZQXxmkubXCPuwL1hUDWokZ VypVlxGX4gEIEmsdmjo577 GfOqYEL1RYMxdXVnT5IoaN 9yOiAjMDAw PCImD9FmdXFzVLasN524QB xtKnU7DNNvbiPeL9XqJYDl nVuvKjX2t6Q1Ih4xFVPKWF FyczwvdGQ+ DHKaHRV7uKnxHQdrUBMppY 7dUKLzF5x8VfApNiH0FMov R0RbZJXkrpigUf68mJ9oFj QyVgS8QHny Y7OcsqG3BZAlbOGoSUxbHH C6G11yd4J2DIOkSYDuLHM0 mGF1tJ8qgJdiktktdCXluY sgdmVydGlj GPilSCjjP299ALCbwYncTv 3RSZI6Q9NbBhz3RQOlwUpr TV4pfEYyCKdhJx3hhXfnsX zrSO9pLKXd yntgAKFdeB9aOCKchWLssA ypTR3aTHKitnaew158OfAo NRT4BUUakBMuS8HpwH7bDp AjMDAwMDAw M7MlwWNbOFfzO404DVdyIf U4VGKivaPgV9SlXKBwvHwp DiR6r8D8Uv6PcCOuI8BxC9 p5D2RjEoxi dHI+HH63ZXAdUN12wXTiuG Bmq7mihOl7ReXfCDApYFN7 yHoxCUshf7ElQXPzV81glQ Dxi6E7QSXu xNutpQHdTsKtbSB3uO4zRD vwkhlnw1ttfyfrXxocy4xk cl03xC29G10yDHatQDFfFA IzMCUiIHZh nUhcuz9dsI9pDf1+PGNvbC Q8bUD6cX3qTzXgUkO4EPpb U616XcMnvALzWqsef1mux7 ovlSv4PyJs INVvekIbdQsbLHG8j4RfKj 52K09vWAbdBLRhKYJiAKLn IALlwRdroo3hxM9aTl1+PC 3dq8flis20 rS43gET+EOCoFEJ1kBanAT fdLEVhuQ7qXAqtNrV2DIMn YwXwwU86yLIyCYouCd2isG asnGxgXP1s LQHywtfha173CjOnk1bqVK MuuGTbIEdvAHO1B08zr0J4 NJOeJPBoZSZ4yUR6fZ3wqM lnbjogbGVm dDsgdmVydGljYWwtYWxpZ2 26OCXjhTguKmNkxVPwA6xz cnKAVX3hKobluQZ+PHRkIH J5aXkySCbg VOGzgP1yQJLgS9n5RmOsUt D5LPevJ4UkmqF8ZEJxoIGe KEPpfZKOwX0hqjgjv7ctlb ogIzAwMDAw ARv3UHr6PDNgxHngElKbNI D6GbK5JNZ7yAPzvF5mgXhu uzrmaV6aWst+RklOOjwvdG Q+PHRkIHN0 qPmeJRomZMJngR6rLZElS3 a0JrCkTkY8CZkgV4ApohW4 WBJydBPuYNWugURAaG6dbc cnt9miduyr DaAkIXQjLKj8WXz9ZRRisZ zaDrFpDZY5VxC2PWO7aYNc aA1bgHlqmlkgqG6gBmf+TV JOOjwvdGQ+ TPLuVRH4zXmsHXojPZGnrG 3xLKHcW3l4YvFmZxG9PKxs J5YkaeE6TDDjfMBuSXVmzJ VCiI2zqyoe q7maxyvgEzUiYCExILm4PG m0WZLtvInbFoGyJAM4OaW2 ABI7sLLfqW3ghTbnwgiwtV 9wOyc+UGF5 HRA8FO99FC88L5NgEvdukC FibGU+PHRhYmxlIHdpZHRo MLtvOQTgGxQpsRzbLZ2oAd 9yZGVyLWNv bGx (more content not included)... Normal [facility] ED Clinical Summaryon 2022 ED Clinical Summary [facility] - Emergency Department [address] [place] [id number] ED Clinical Summary PERSON INFORMATION Name: BASSEM DAWSON Age: 37 Years Sex: MALE : 1985 MRN: Acct#: Visit Reason: Throat pain - Adult; THROAT PAIN Arrival: 12/28/2022 16:36:37 Discharge: 12/28/2022 18:39:00 LOS: 000 02:03 Check In: 12/28/2022 16:36:37 Checkout:12/28/2022 18:39:00 Address: [address] [place] [id number] PCP: Provider, None PROVIDER INFORMATION Provider Role Assigned Unassigned [place] Yoo PA-C ED PA 12/28/2022 16:46:06 12/28/2022 17:06:36 Drew Medrano DO ED Provider 12/28/2022 17:05:44 VITALS INFORMATION Vital Sign Triage Latest Temperature Tympanic Temperature Temporal Artery Pulse Rate 84 bpm 70 bpm O2 Sat 99 % 98 % Respiratory Rate 16 br/min 16 br/min Blood Pressure /95 mmHg /95 mmHg MEDICAL INFORMATION Medications Given: Medication Dose Route ketorolac 60 mg IM dexamethasone 10 mg PO Allergy Information: No known allergies PHYSICIAN DOCUMENTATION DISCHARGE INFORMATION: Discharge Disposition: Home Discharge Location: Home PATIENT EDUCATION INFORMATION Instructions: How to Take Your Blood Pressure; Pharyngitis Follow-Up: With: Address: When: Manny Reyes MD [address] [place] [address] [id number] Within 7 to 10 days Comments: Follow-up in 7 to 14 days if symptoms or not improving You can call this phone number to establish care for a primary doctor, you can also follow-up with them for your blood pressure checks Use Chloraseptic numbing spray for the back your throat Take 1000 mg Tylenol and 800 mg ibuprofen every 8 hours Gargle with warm salt water twice per day Return if you develop difficulty moving your neck, difficulty speaking, difficulty breathing, fevers, body aches, chills DIAGNOSIS: 1:Ulcer of the throat; 2:Pharyngitis; 3:Blood pressure elevated without history of HTN Patient Understands: Yes - Patient/family/caregiv er verbalizes understanding of instructions given Comment: [facility] ED Note-Nursingon 12-28-2022 ED Note-Nursing Pt arrives to ED wit h complaint of sore throat for approx 2 weeks. [facility] and given Clindamycin. Pt reports compliance with PO antibiotic but reports no improvement in symptoms. Reports the pain is worse on the right side of throat and endorses some difficulty swallowing on right side. Pt states he has been taking acetaminophen and ibuprofen at home without improvement. [facility] ED Patient Summaryon 023 ED Patient Summary [facility] - Emergency Department [address] [place] [id number] PATIENT DISCHARGE INSTRUCTIONS Patient Information Name: BASSEM DAWSON Age: 37 Years Date of : 1985 Reason For Visit: Throat pain - Adult; THROAT PAIN Arrival Time: 12/28/2022 16:36:37 Primary Care Physician: Provider, None Attending Physician: Drew Medrano DO Comment: Visit Diagnosis: Diagnoses This Visit Blood pressure elevated without history of HTN (R03.0) Pharyngitis (J02.9) Throat pain - Adult ([id number]) Ulcer of the throat (J38.7) The Pharmacy at [facility] is open Tuesday through Tuesday from 9A to 6P and Tuesday and Tuesday from 9A to 5P Prescription Information: If you have been given a prescription for narcotics, seek immediate medical attention if you have any difficulty breathing or any sudden status changes such as confusion and sleepiness. If you or anyone you know is experiencing suicidal thoughts, mental health, alcohol and/or drug addiction problems; contact the [facility] 28/03 Crisis Hotline -Text 2HXNP to 544011. If you received any narcotics, sedation, or any other medication that causes drowsiness for the next 24 hours, unless otherwise directed: ? Do not drive a car. ? Do not operate machinery such as power tools, lawn mowers, drills, sewing machines, or stoves ? Avoid alcoholic beverages and drugs for allergies, nerves, or sleep ? Do not make important personal or business decisions or sign any legal documents With: Address: When: Eric MUHAMMAD, Manny Mckinney [address] [place] [id number] Within 7 to 10 days Comments: Follow-up in 7 to 14 days if symptoms or not improving You can call this phone number to establish care for a primary doctor, you can also follow-up with them for your blood pressure checks Use Chloraseptic numbing spray for the back your throat Take 1000 mg Tylenol and 800 mg ibuprofen every 8 hours Gargle with warm salt water twice per day Return if you develop difficulty moving your neck, difficulty speaking, difficulty breathing, fevers, body aches, chills Medication Information: The exam and treatment you received today in the [facility] Emergency Department were for an urgent problem and are not intended as complete care. It is important for you to follow up with a doctor, nurse practitioner, or physician?s assistant baseball coach for ongoing care. If your symptoms become worse or you do not improve as expected and you are unable to reach your usual health care provider, you should return to the Emergency Department, we are available 24 hours a day. For those patients who have received Radiology results, the interpretation of your X-ray as given to you by our Emergency Department physician is only a preliminary report. The Radiologist will review your films and if there is a change in the diagnosis you will be notified by phone. Please make sure you have provided a working phone number so we can reach you if necessary. In the event that you had a lab culture while you were a patient in the Emergency Department, you will be notified by phone if there is a need to change your antibiotic. Please make sure you have provided a working phone number so we can reach you if necessary. [facility] Emergency Department has provided you with a complete list of medications post discharge. Please inform your interactive media marketing specialist/provider of your visit and for further instruction on these medications. Any specific questions regarding your chronic medications and dosages should be discussed with your primary care physician(s) and/or pharmacist. Additional medications on your home medication list not specifically addressed. Please contact the ordering physician if you have questions about these medications. clindamycin (clindamycin 150 mg oral capsule) 1 cap(s) Oral Every 6 hours for 14 Days. Visit Information Allergies: Substance Reaction Symptoms Type Comments No known allergies Drug Vital Signs: Vitals and Measurements this Visit (last charted value for your 12/28/2022 visit) Vital Signs This Visit Temperature Temporal: 36.6 DegC Peripheral Pulse Rate: 70 bpm Respiratory Rate: 16 br/min Systolic Blood Pressure: 129 mmHg Diastolic Blood Pressure: 74 mmHg SpO2: 98 % Oxygen Therapy: Room air Measurements This Visit Height/Length Dosin.340 cm Height/Length Estimated: 180.340 cm Weight Dosin.910 kg Weight Estimated: 83.910 kg Problems List: Problem Onset Comments No Problems found Patient Education How to Take Your Blood Pressure Blood pressure is a measurement of how strongly your blood is pressing against the hathaway of your arteries. Arteries are blood vessels that carry blood from your heart throughout your body. Your health care provider takes your blood pressure at each office visit. You (more content not included)... Normal [facility] XR Neck Soft Tissueon 2022 XR Neck Soft Tissue EXAM: XR Neck Soft Tissue HISTORY: pharyngitis, hoarse voice COMPARISON: None. TECHNIQUE: 2 views. FINDINGS: The epiglottis and aryepiglottic folds are unremarkable. Retropharyngeal soft tissues are unremarkable. IMPRESSION: Unremarkable soft tissues of the neck. Final Dictated by: Kamaljit Rios Dictated DT/TM: 12/28/22 7:00 Signed (Electronic Signature): Kamaljit Rios 12/28/22 7:02 pm Technologist: CHERYL [facility] 07-08-2020 COVID 19 Result RESIDENTIAL SALES REPRESENTATIVE See Below [place] ([place]) Comment on above: Result Comment: Nega tive Negative for COVID19 (SARS CoV2) by PCR. This test was developed and its performance characteristics determined by [facility] [place]. This test has been authorized by FDA under an Emergency Use Authorization (EUA). This test has been validated in accordance with the FDA's Guidance Document Policy for Diagnostics Testing in Laboratories Certified to Perform High Complexity Testing under CLIA prior to Emergency use Authorization for Coronavirus Disease 2019 during the Public Health Emergency issued on November 03, 2019. Performed By: [facility] [place] [address] Adhesive Bonding Machine Operator: Mitchell Steiner III, M.D. CLIA#: [id number] Phone#: Performed By: #### C OVID #### [address] [address] COVID 19 Source RESIDENTIAL SALES REPRESENTATIVE See Below [facility] ([place]) Comment on above: Result Comment: Naso pharyngeal Swab Performed By: [facility] [address] [facility] [place] [address] Adhesive Bonding Machine Operator: Mitchell Steiner III, M.D. CLIA#: [id number] Phone#: Performed By: #### C OVID #### [address] [address] Date of Onset [id number] [facility] ([place]) Comment on above: Performed By: #### C OVID #### [address] [address] Employed in Healthcare No [facility] ([place]) Comment on above: Performed By: #### C OVID #### Kika [address] [address] First Test Yes [facility] ([place]) Comment on above: Performed By: #### C OVID #### Kika [address] [place], [place] [address] Hospitalized No [facility] ([place]) Comment on above: Performed By: #### C OVID #### Kika [address] [place], [place] [address] ICU No [facility] ([place]) Comment on above: Performed By: #### C OVID #### Kika [address] [place] [id number] Not [facility] ([place]) Comment on above: Performed By: #### C OVID #### Kika [place] [address] [place] [address] Resides in Congregate Care Setting No [facility] ([place]) Comment on above: Performed By: #### C OVID #### Kika [place] [address] [place], [place] [address] Symptomatic as Defined by CDC No [facility] ([place]) Comment on above: Performed By: #### C OVID #### K[address] [place] [address] [place], [place] [address] CNOVon 10-03-2019 CNOV Office Visit (FAMPWS ) BASSEM DAWSON ([id number]) 1985 M Date Time Provider Department 10/03/19 11:40 AM CHARLOTTE CAMPA) FAMPWS During your visit today, we recorded the following information about you: Temperature Pulse Respiration Blood pressure 97.1 degrees 56/minute 12/minute 134/86 Weight 85.7 kg Charlotte Campa MD 10/03/2019 11:59 AM Signed Chief Complaint Patient presents with: ED Follow-up: [facility] - labs, chest xray, ekg - reported all normal - records requested HPI Bassem Dawson is a 34 year old male who presents here today for ER Follow Up.. Patient evaluated at [facility] ED on 10/01 with complaint of right sided chest discomfort for 2 months prior and indigestion. Symptoms worsened around 2:30 am the day of evaluation with SOB and without nausea, vomiting. VSS. Exam normal aside from slightly tender right lateral chest wall. CBC, CMP, D dimer, Troponin normal. CXR negative. EKG showed sinus rhythm with PACs. With low risk patient and negative workup, recommended discharge home with outpatient f/u. Since discharge, patient states that his right sided chest pain has not resolved. top dyeing machine tender to palpation over previous chest tube scar. Notes that he has been having indigestion which may be contributing to symptoms. Treating with Prilosec OTC for the last 2 days with minimal improvement in indigestion symptoms. Avoiding greasy/fried foods and cutting out coffee and chewing. Denies SOB, palpitations, chest pressure, leg swelling. Past medical history, appointments, medications, allergies reviewed. Previous Medical History PAST MEDICAL HISTORY Diagnosis Date - History of tobacco use - Spontaneous pneumothorax 2 times-2005,2008. Previous Surgical History PAST SURGICAL HISTORY Procedure Laterality Date - CHEST TUBE (SPECIFY) Left 2008 - PAST SURGICAL HISTORY OF tendon repair left hand - PAST SURGICAL HISTORY OF Right 2006 Insertion of chest tube, spontaneous pneumothorax - PAST SURGICAL HISTORY OF 12/05/2008 Reconstructed left lung - REMOVAL OF TONSILS,<12 Y/O Tonsillectomy Family History FAMILY HISTORY Adopted: Yes Patient Allergies ALLERGIES Allergen Reactions - Alleve [Naproxen] Swelling - Ibuprofen Swelling Current Medications Current Outpatient Medications on File Prior to Visit Medication Sig - diphenhydrAMINE-maalox -lidocaine (BMX 1:1:1) 1:1:1 liqd Mix in equal amounts - 1 T every 2hrs as needed for mouth pain, Swish/swallow or expectorate. (8oz) No current facility-administered medications on file prior to visit. Social History Social History Tobacco Use - Smoking status: Former Smoker Packs/day: 1.00 Years: 10.00 Pack years: 10.00 Types: Cigarettes Last attempt to quit: 09/05/2008 Years since quittin.0 - Smokeless tobacco: Former User Types: Chew Quit date: 08/11/2017 - Tobacco comment: started in teens Substance Use Topics - Alcohol use: Yes Alcohol/week: 5.0 standard drinks Types: 2 Cans of Beer (12oz) per week - Drug use: No Review of Symptoms REVIEW OF SYSTEMS GENERAL: No weight loss, malaise or fevers RESPIRATORY: Negative for cough, hemoptysis, wheezing, COPD, dyspnea or shortness of breath CARDIOVASCULAR: Negative for chest pain, leg swelling, hypertension, CHF or palpitations GI: No nausea, vomiting, or diarrhea SKIN: Negative for lesions, rash, and itching EXAM: BP 134/86 Pulse (!) 56 Temp 36.2 ?C (97.1 ?F) (Tympanic) Resp 12 Wt 85.7 kg (189 lb) BMI 26.74 kg/m? General Appearance: Well appearing, alert, in no acute distress, well-hydrated, well nourished.. Skin: Skin color, texture, turgor normal, no suspicious rashes or lesions. Lungs: lungs clear to auscultation. No wheezing, rhonchi, rales. Heart: RRR without murmur, gallop, or rubs. No ectopy. Chest: mildly TTP over right lateral ribs near his chest tube scar. Health Maintenance List LIPID SCREEN due on 12/31/2018 INFLUENZA(1) due on 05/06/2019 DTAP,TDAP,TD(2 - Td) due on 05/22/2019 ASSESSMENT/PLAN: 1. Rib pain on right side - ICD9: 786.50, ICD10: R07.81 (primary diagnosis) Likely musculoskeletal. Cardiac workup negative. Unable to take NSAIDs. Recommended ice, rest, and tylenol for pain. Call in 1-2 weeks if not improving. 2. GERD without esophagitis - ICD9: 530.81, ICD10: K21.9 - Discussed lifestyle modifications including losing weight, limiting caffeine and no meals three hours before sleep - Continue treatment with Prilosec 20 mg QD Charlotte Campa MD Referring Provider: SELF [200] Allergies As of Date: 10/03/2019 Noted Allergy Reaction ALLEVE (NAPROXEN) 05/23/2009 7 - Swelling IBUPROFEN 05/23/2009 7 - Swelling Date Reviewed: 10/03/2019 Reviewed by: Allan Castaneda MA - Fully Assessed Reason for Visit: ED Follow-up [821] Cmt: Kika Marin - labs, chest xray, ekg - reported all normal - records requested Reason For Visit History Recorded Primary Visit Diagnosis:Rib pain on right side [R07.81] Other Visit Diagnosis:GERD without esophagitis [K21.9] Prescriptions as of 10/03/2019 Sig: DIPHENHYDRAMINE-ANTACI D-LIDOC* Mix in equal amounts - 1 T ev* Problem List As Of Date 10/03/2019 Noted Resolved Acute bilateral low back pain with bilateral sc*07/12/2017 Disposition: Return in about 3 months (around 01/02/2020). Follow-up and Disposition History Recorded Encounter Status:Closed by CHARLOTTE CAMPA MD on 10/03/19 Normal [facility] PROGRESSon 10-03-2019 PROGRESS HNO ID: [id number] Author: Charlotte Jackson) [place] Service: ? Author Type: Physician Type: Progress Notes Filed: 10/03/2019 11:59 AM Note Text: Chief Complaint Patient presents with: ED Follow-up: [facility] - labs, chest xray, ekg - reported all normal - records requested HPI Bassem Dawson is a 34 year old male who presents here today for ER Follow Up.. Patient evaluated at [facility] ED on 10/01 with complaint of right sided chest discomfort for 2 months prior and indigestion. Symptoms worsened around 2:30 am the day of evaluation with SOB and without nausea, vomiting. VSS. Exam normal aside from slightly tender right lateral chest wall. CBC, CMP, D dimer, Troponin normal. CXR negative. EKG showed sinus rhythm with PACs. With low risk patient and negative workup, recommended discharge home with outpatient f/u. Since discharge, patient states that his right sided chest pain has not resolved. top dyeing machine tender to palpation over previous chest tube scar. Notes that he has been having indigestion which may be contributing to symptoms. Treating with Prilosec OTC for the last 2 days with minimal improvement in indigestion symptoms. Avoiding greasy/fried foods and cutting out coffee and chewing. Denies SOB, palpitations, chest pressure, leg swelling. Past medical history, appointments, medications, allergies reviewed. Previous Medical History PAST MEDICAL HISTORY Diagnosis Date - History of tobacco use - Spontaneous pneumothorax 2 times-2005,2008. Previous Surgical History PAST SURGICAL HISTORY Procedure Laterality Date - CHEST TUBE (SPECIFY) Left 2008 - PAST SURGICAL HISTORY OF tendon repair left hand - PAST SURGICAL HISTORY OF Right 2006 Insertion of chest tube, spontaneous pneumothorax - PAST SURGICAL HISTORY OF 12/05/2008 Reconstructed left lung - REMOVAL OF TONSILS,<12 Y/O Tonsillectomy Family History FAMILY HISTORY Adopted: Yes Patient Allergies ALLERGIES Allergen Reactions - Alleve [Naproxen] Swelling - Ibuprofen Swelling Current Medications Current Outpatient Medications on File Prior to Visit Medication Sig - diphenhydrAMINE-maalox -lidocaine (BMX 1:1:1) 1:1:1 liqd Mix in equal amounts - 1 T every 2hrs as needed for mouth pain, Swish/swallow or expectorate. (8oz) No current facility-administered medications on file prior to visit. Social History Social History Tobacco Use - Smoking status: Former Smoker Packs/day: 1.00 Years: 10.00 Pack years: 10.00 Types: Cigarettes Last attempt to quit: 09/05/2008 Years since quittin.0 - Smokeless tobacco: Former User Types: Chew Quit date: 08/11/2017 - Tobacco comment: started in teens Substance Use Topics - Alcohol use: Yes Alcohol/week: 5.0 standard drinks Types: 2 Cans of Beer (12oz) per week - Drug use: No Review of Symptoms REVIEW OF SYSTEMS GENERAL: No weight loss, malaise or fevers RESPIRATORY: Negative for cough, hemoptysis, wheezing, COPD, dyspnea or shortness of breath CARDIOVASCULAR: Negative for chest pain, leg swelling, hypertension, CHF or palpitations GI: No nausea, vomiting, or diarrhea SKIN: Negative for lesions, rash, and itching EXAM: BP 134/86 Pulse (!) 56 Temp 36.2 ?C (97.1 ?F) (Tympanic) Resp 12 Wt 85.7 kg (189 lb) BMI 26.74 kg/m? General Appearance: Well appearing, alert, in no acute distress, well-hydrated, well nourished.. Skin: Skin color, texture, turgor normal, no suspicious rashes or lesions. Lungs: lungs clear to auscultation. No wheezing, rhonchi, rales. Heart: RRR without murmur, gallop, or rubs. No ectopy. Chest: mildly TTP over right lateral ribs near his chest tube scar. Health Maintenance List LIPID SCREEN due on 12/31/2018 INFLUENZA(1) due on 05/06/2019 DTAP,TDAP,TD(2 - Td) due on 05/22/2019 ASSESSMENT/PLAN: 1. Rib pain on right side - ICD9: 786.50, ICD10: R07.81 (primary diagnosis) Likely musculoskeletal. Cardiac workup negative. Unable to take NSAIDs. Recommended ice, rest, and tylenol for pain. Call in 1-2 weeks if not improving. 2. GERD without esophagitis - ICD9: 530.81, ICD10: K21.9 - Discussed lifestyle modifications including losing weight, limiting caffeine and no meals three hours before sleep - Continue treatment with Prilosec 20 mg QD Charlotte Campa MD Normal [facility] .Auto Diffon 10-01-2019 Ammonia (P) [Mass/Vol] 0.60 10 3/mcL Normal 0.15-1.00 [facility] ([place]) Comment on above: Performed By: #### C BC, ADIFF, ANEU, DIMER #### [place] [address] #### BMP, GFR, TROP #### [address] [address] Basophils (Bld) [#/Vol] 0.10 10 3/mcL Normal 0.00-0.19 [facility] ([place]) Comment on above: Performed By: #### C BC, ADIFF, ANEU, DIMER #### [address] [address] #### BMP, GFR, TROP #### [address] [address] Basophils/100 WBC (Bld) 0.9 % Normal 0.0-2.5 [facility] ([place]) Comment on above: Performed By: #### C BC, ADIFF, ANEU, DIMER #### [place] [address] #### BMP, GFR, TROP #### [address] [address] Eosinophils (Bld) [#/Vol] 0.20 10 3/mcL Normal 0.00-0.40 [facility] ([place]) Comment on above: Performed By: #### C BC, ADIFF, ANEU, DIMER #### [address] [address] #### BMP, GFR, TROP #### [address] [address] Eosinophils/100 WBC (Bld) 2.6 % Normal 0.0-7.0 [facility] ([place]) Comment on above: Performed By: #### C BC, ADIFF, ANEU, DIMER #### [address] [address] #### BMP, GFR, TROP #### [address] [address] Lymphocytes (Bld) [#/Vol] 2.40 10 3/mcL Normal 0.77-3.85 [facility] ([place]) Comment on above: Performed By: #### C BC, ADIFF, ANEU, DIMER #### [address] [address] #### BMP, GFR, TROP #### [address] [address] Lymphocytes/100 WBC (Bld) 31.5 % Normal 10.0-50.0 [facility] ([place]) Comment on above: Performed By: #### C BC, ADIFF, ANEU, DIMER #### [address] [address] #### BMP, GFR, TROP #### [address] [address] Monocytes/100 WBC (Bld) 8.4 % Normal 1.7-13.0 [facility] ([place]) Comment on above: Performed By: #### C BC, ADIFF, ANEU, DIMER #### [address] [address] #### BMP, GFR, TROP #### [address] [address] Neutrophils/100 WBC (Bld) 56.6 % Normal 37.0-80.0 [facility] ([place]) Comment on above: Performed By: #### C BC, ADIFF, ANEU, DIMER #### [address] [address] #### BMP, GFR, TROP #### [address] [address] .GFRon 10-01-2019 GFR 88 ml/min/1.73sqm Normal [facility] ([place]) Comment on above: Result Comment: GFR Population mean for , Non- Americans Ages 20-29 = 116 mL/min/1.73 sq.m. Ages 30-39 = 107 mL/min/1.73 sq.m. Ages 40-49 = 99 mL/min/1.73 sq.m. Ages 50-59 = 93 mL/min/1.73 sq.m. Ages 60-69 = 85 mL/min/1.73 sq.m. Ages 70+ = 75 mL/min/1.73 sq.m. Chronic Kidney Disease: Less than 60 mL/min/1.73 square meters End Stage Renal Disease: Less than 15 mL/min/1.73 square meters Performed By: #### C BC, DARREN, ANEU, DIMER #### [address] [address] #### BMP, GFR, TROP #### [address] [address] GFR Non- 72 ml/min/1.73sqm Normal [facility] ([place]) Comment on above: Result Comment: GFR Population mean for , Non- Americans Ages 20-29 = 116 mL/min/1.73 sq.m. Ages 30-39 = 107 mL/min/1.73 sq.m. Ages 40-49 = 99 mL/min/1.73 sq.m. Ages 50-59 = 93 mL/min/1.73 sq.m. Ages 60-69 = 85 mL/min/1.73 sq.m. Ages 70+ = 75 mL/min/1.73 sq.m. Chronic Kidney Disease: Less than 60 mL/min/1.73 square meters End Stage Renal Disease: Less than 15 mL/min/1.73 square meters Performed By: #### C BC, ADIFF, ANEU, DIMER #### [address] [address] #### BMP, GFR, TROP #### [address] [address] .NEUABSon 10-01-2019 Neutrophils (Bld) [#/Vol] 4.40 10 3/mcL Normal 2.85-6.16 [facility] ([place]) Comment on above: Performed By: #### C BC, ADIFF, ANEU, DIMER #### [place] [address] #### BMP, GFR, TROP #### [place] [address] BMPon 10-01-2019 Calcium [Mass/Vol] 9.4 mg/dL Normal 8.4-10.2 [facility] ([place]) Comment on above: Performed By: #### C BC, ADIFF, ANEU, DIMER #### [place] [address] #### BMP, GFR, TROP #### [place] [address] Chloride [Moles/Vol] 100 mmol/L Normal 98-107 [facility] ([place]) Comment on above: Performed By: #### C BC, ADIFF, ANEU, DIMER #### [place] [address] #### BMP, GFR, TROP #### [place] [address] CO2 [Moles/Vol] 29 mmol/L Normal 22-29 [facility] ([place] Comment on above: Performed By: #### C BC, ADIFF, ANEU, DIMER #### [place] [address] #### BMP, GFR, TROP #### [place] [address] Creatinine [Mass/Vol] 1.15 mg/dL Normal 0.70-1.30 [facility] ([place]) Comment on above: Performed By: #### C BC, ADIFF, ANEU, DIMER #### [place] [id number] #### BMP, GFR, TROP #### [address] [address] Electrolyte Balance 10.0 mEq/L Normal [facility] ([place]) Comment on above: Performed By: #### C BC, ADIFF, ANEU, DIMER #### [address] [address] #### BMP, GFR, TROP #### [address] [address] Glucose [Mass/Vol] 99 mg/dL Normal 70-105 [facility] ([place] Comment on above: Performed By: #### C BC, ADIFF, ANEU, DIMER #### [address] [address] #### BMP, GFR, TROP #### [address] [address] Potassium [Moles/Vol] 4.2 mmol/L Normal 3.5-5.1 [facility] ([place]) Comment on above: Performed By: #### C BC, ADIFF, ANEU, DIMER #### [address] [address] #### BMP, GFR, TROP #### [address] [address] Sodium [Moles/Vol] 139 mmol/L Normal 136-145 [facility] ([place] Comment on above: Performed By: #### C BC, ADIFF, ANEU, DIMER #### [address] [address] #### BMP, GFR, TROP #### [address] [address] Urea nitrogen [Mass/Vol] 13 mg/dL Normal 7-18 [facility] ([place]) Comment on above: Performed By: #### C BC, ADIFF, ANEU, DIMER #### [address] [address] #### BMP, GFR, TROP #### [address] [address] Urea nitrogen/Creatinin e [Mass ratio] 11 ratio Normal 7-27 [facility] ([place]) Comment on above: Performed By: #### C BC, ADIFF, ANEU, DIMER #### [address] [address] #### BMP, GFR, TROP #### [address] [address] CBCon 10-01-2019 Erythrocyte distribution width (RBC) [Ratio] 13.0 % Normal 11.5-14.5 [facility] ([place]) Comment on above: Performed By: #### C BC, ADIFF, ANEU, DIMER #### [place] [address] #### BMP, GFR, TROP #### [address] [address] Hematocrit (Bld) [Volume fraction] 43.8 % Normal 42.0-52.0 [facility] ([place]) Comment on above: Performed By: #### C BC, ADIFF, ANEU, DIMER #### [address] [address] #### BMP, GFR, TROP #### [address] [address] Hemoglobin (Bld) [Mass/Vol] 15.2 G/dL Normal 14.0-18.0 [facility] ([place]) Comment on above: Performed By: #### C BC, ADIFF, ANEU, DIMER #### [place] [address] #### BMP, GFR, TROP #### [address] [address] MCH (RBC) [Entitic mass] 30.6 pg Normal 27.0-31.2 [facility] ([place]) Comment on above: Performed By: #### C BC, ADIFF, ANEU, DIMER #### [address] [address] #### BMP, GFR, TROP #### [place] [id number] MCHC (RBC) [Mass/Vol] 34.7 G/dL Normal 31.8-35.4 [facility] ([place]) Comment on above: Performed By: #### C BC, ADIFF, ANEU, DIMER #### [place] [address] #### BMP, GFR, TROP #### [address] [address] MCV (RBC) [Entitic vol] 88.2 fL Normal 80.0-94.0 [facility] ([place]) Comment on above: Performed By: #### C BC, ADIFF, ANEU, DIMER #### [place] [address] #### BMP, GFR, TROP #### [address] [address] Platelet mean volume (Bld) [Entitic vol] 7.3 fL Low 7.4-10.4 [facility] ([place]) Comment on above: Performed By: #### C BC, ADIFF, ANEU, DIMER #### [place] [address] #### BMP, GFR, TROP #### [address] [address] Platelets (Bld) [#/Vol] 273 10 3/mcL Normal 130-400 [facility] ([place]) Comment on above: Performed By: #### C BC, ADIFF, ANEU, DIMER #### [place] [address] #### BMP, GFR, TROP #### [address] [address] RBC (Bld) [#/Vol] 4.97 10 6/mcL Normal 4.04-6.13 [facility] ([place]) Comment on above: Performed By: #### C BC, ADIFF, ANEU, DIMER #### [place] [address] #### BMP, GFR, TROP #### [address] [address] WBC (Bld) [#/Vol] 7.70 10 3/mcL Normal 4.60-10.80 [facility] ([place]) Comment on above: Performed By: #### C BC, ADIFF, ANEU, DIMER #### [address] [address] #### BMP, GFR, TROP #### [address] [address] DIMERon 10-01-2019 Fibrin D-dimer FEU IA (Bld) [Mass/Vol] ug/mL Normal 0-230 [facility] ([place]) Comment on above: Result Comment: The result of the D-Dimer test should be evaluated in the context of all the clinical and laboratory data available. In those instances where the laboratory result does not agree with the clinical evaluation, additional tests should be performed accordingly. If the D-Dimer result is used to exclude DVT or PE, the recommended cutoff value is less than 230 ng/mL. The D-Dimer result should not be used alone to rule in DVT/PE, but should be used in conjunction with a clinical pretest probability (PTP)assessment model to exclude venous thromboembolism (VTE) in outpatients suspected of deep venous thrombosis (DVT) and pulmonary embolism (PE). Performed By: #### C BC, ADIFF, ANEU, DIMER #### [address] [address] #### BMP, GFR, TROP #### [address] [address] TROPon 10-01-2019 Troponin I.cardiac [Mass/Vol] ng/mL Normal 0.000-0.040 [facility] ([place]) Comment on above: Result Comment: Trop onin I reference range: 0.00-0.040 ng/mL Negative and non-diagnostic. >0.040 ng/mL Consistent with cardiac damage, increased clinical risk and possibility of myocardial infarction. Serial measurements, a rise & fall in test results, clinical history, appropriate symptoms and/or ECG changes may help assess possibility of WI. *Other non-acute coronary syndrome conditions such as CHF, myocarditis, pulmonary emboli, sepsis and cardiac surgery could result in myocardial damage and increased troponin levels. Performed By: #### C BC, ADIFF, ANEU, DIMER #### [address] [place] [address], [place] [address] #### BMP, GFR, TROP #### [address] [address] XR CHEST 2 VIEWSon 0 XR CHEST 2 VIEWS ORIGINAL XR CHEST 2 VIEWS, 10/01/2019 10:51 AM INDICATION: Chest Pain COMPARISON: No FINDINGS: The lungs and pleural spaces are clear. The cardiac silhouette is within normal size limits. The pulmonary vasculature is normal in appearance IMPRESSION: Clear lungs. Interpreted By: Hermann Vallejo MD Preliminary Report By: Hermann Vallejo MD Electronically Signed By: Hermann Vallejo MD Dictated Date: 10/01/2019 10:55:04 AM Prelim Date: 10/01/2019 10:55:04 AM Sign Date: 10/01/2019 10:55:38 AM Ordering Provider:Kamaljit Gaffney [facility] ([place]) Abdomen/Pelvis WITH Contrast on 07-09-2017 Abdomen/Pelvis WITH Contrast [facility] [address] [place], [place] [address]Hbznliw/Pelvis WITH ContrastMR#: [id number] Acct: [id number]: BASSEM DAWSON Rep #: [id number]: 1985 M 32 From: Duglas Huddleston MDPCP: Charlotte Campa MD Status: REG ERStudy: Abdomen/Pelvis WITH Contrast Date of Exam: 07/08/17Exam# [id number] Ordering Dr: Meredith GoldbergSTUDY: CT ABDOMEN AND PELVIS WITH CONTRASTREASON FOR EXAM: Male, 32 years old. Pain between rectum and scrotumRADIATION DOSAGE (If Supplied By Facility): CTDIvol = ( 12.81 ) mGy, DLP =( 675.39 ) mGycmTECHNIQUE: Transaxial images were obtained from the dome of the diaphragmto the symphysis pubis without oral contrast. 100 ml of Isovue 300contrast was administered. Sagittal and coronal images were reconstructed.Individu alized dose optimization techniques were used for this CT.COMPARISON: None. FIND INGS:The visualized lung bases are unremarkable. The visualized portions of theheart are within normal limits.Normal liver. Normal gallbladder and extrahepatic biliary system. Normalspleen. Normal pancreas.Normal bilateral adrenal glands.Normal right kidney. Normal left kidney.Normal visualized stomach. Normal small intestine. Normal colon. Theappendix is visualized and appears normal.Normal abdominal aorta. Normal inferior vena cava. Normalretroperitoneum. Normal urinary bladder.Normal abdominal wall. Normal osseous structures. __ORDER #: [id number] CT/Abdomen/Pelvis WITH ContrastIMPRESSION:No CT evidence of acute abdominopelvic pathology.Electronical ly Signed:Duglas Huddleston MD at 0:34 EDTTel , Service support , TS: Meredith Goldberg; Charlotte Campa MD Answering Service Telephone Operator:Lilly Branham [facility] Basic Metabolic Profile (BMP )on 07-09-2017 BUN (urea nitrogen) 10.2 RATIO Normal 10-20 [facility] Comment on above: Performed By: #### L 500.2500 ####[facility] [address] [place], [address] Calcium 8.8 mg/dL Normal 8.5-10.1 [facility] Comment on above: Performed By: #### L 500.2500 ####[facility] [address] [facility] [address] Chloride 103 mmol/L Normal 98-107 [facility] Comment on above: Performed By: #### L 500.2500 ####[facility] [address] [place], [address] CO2 27.0 mmol/L Normal 21.0-32.0 [facility] Comment on above: Performed By: #### L 500.2500 ####[facility] [address] [place], [address] Creatinine 1.08 mg/dL Normal 0.70-1.30 [facility] Comment on above: Result Comment: The validity of the calculated GFR AND GFRAA in patients over70 years has not been determined. Clinical correlation isessential. Performed By: #### L 500.2500 ####[facility] [address] [place], [address] eGFR (non-black) 101 mL/min/{1.73_m2} Normal >60 [facility] Comment on above: Result Comment: Afri can Swedish GFR Calc Performed By: #### L 500.2500 ####[facility] [address] [place], [address] eGFR (non-black) 83 mL/min/{1.73_m2} Normal >60 [facility] Comment on above: Result Comment: Non- GFR Calc Performed By: #### L 500.2500 ####[facility] [address] [place], [address] Estimated CRCL 103.61 ml/min Normal [facility] Comment on above: Performed By: #### L 500.2500 ####[facility] [address] [place], [address] GAP 9 Normal 5-15 [facility] Comment on above: Performed By: #### L 500.2500 ####[facility] [address] [place], [address] Glucose mass conc 91 mg/dL Normal 70-110 [facility] Comment on above: Performed By: #### L 500.2500 ####[facility] [address] [place], [address] Potassium molar conc 3.8 mmol/L Normal 3.5-5.1 [facility] Comment on above: Performed By: #### L 500.2500 ####[facility] [address] [place], [address] Sodium 139 mmol/L Normal 136-145 [facility] Comment on above: Performed By: #### L 500.2500 ####[facility] [address] [place], [address] Urea nitrogen 11 mg/dL Normal 7-18 [facility] Comment on above: Performed By: #### L 500.2500 ####[facility] [address] [place], [address] CBC W/Diff, Automatedon 11-0 -2017 Absolute Neut 4.7 X10 3/uL Normal 2.0-7.7 [facility] Comment on above: Performed By: #### L 100.0100 ####[facility] [address] [place], [address] Basophils/100 WBC Auto (Bld) 0.5 % Normal 0-1 [facility] Comment on above: Performed By: #### L 100.0100 ####[facility] [address] [place], [address] Eosinophils/100 leukocytes 3.0 % Normal 0-5 [facility] Comment on above: Performed By: #### L 100.0100 ####[facility] [address] [place], [address] Erythrocyte distribution width Auto Ratio (RBC) 12.7 % Normal 11.6-14.6 [facility] Comment on above: Performed By: #### L 100.0100 ####[facility] [address] [place], [address] Erythrocytes (RBC) 4.53 M/mm3 Low 4.6-6.2 [facility] Comment on above: Performed By: #### L 100.0100 ####[facility] [address] [place], [address] Hematocrit (HCT) 40.7 % Normal 40-54 [facility] Comment on above: Performed By: #### L 100.0100 ####[facility] [address] [place], [address] Hemoglobin mass conc (Bld) 13.8 g/dL Normal 13.0-16.5 [facility] Comment on above: Performed By: #### L 100.0100 ####[facility] [address] [place], [address] IM GRAN % 0.100 % Normal 0.0-0.9 [facility] Comment on above: Result Comment: IG% - Immature Granulocytes (promyelocytes, myelocytes andmetamyelocytes) > 1% indicates that a LEFT SHIFT is Present. Performed By: #### L 100.0100 ####[facility] [address] [place], [address] Lymphocytes 2.40 X10 3/ul Normal 0.83-4.51 [facility] Comment on above: Performed By: #### L 100.0100 ####[facility] [address] [place], [address] Lymphocytes/100 leukocytes 29.6 % Normal 19-41 [facility] Comment on above: Performed By: #### L 100.0100 ####[facility] [address] [place], [address] MCH 30.5 pg Normal 27.0-32.0 [facility] Comment on above: Performed By: #### L 100.0100 ####[facility] [address] [place], [address] MCHC mass conc (RBC) 33.9 g/gl Normal 32-36 [facility] Comment on above: Performed By: #### L 100.0100 ####[facility] [address] [place], [address] MCV 89.8 fL Normal 80-94 [facility] Comment on above: Performed By: #### L 100.0100 ####[facility] [address] [place], [address] Monocytes/100 leukocytes 8.5 % Normal 0-10 [facility] Comment on above: Performed By: #### L 100.0100 ####[facility] [address] [place], [address] Neutrophils/100 WBC Auto (Bld) 58.3 % Normal 47-70 [facility] Comment on above: Performed By: #### L 100.0100 ####[facility] [address] [place], [address] Platelet mean volume (PMV) 8.8 fL Normal 6.2-12.0 [facility] Comment on above: Performed By: #### L 100.0100 ####[facility] [address] [place], [address] Platelets 239 10*3/uL Normal 150-450 [facility] Comment on above: Performed By: #### L 100.0100 ####[facility] [address] [place], [address] RDW SD 41.0 fl Normal 35.1-43.9 [facility] Comment on above: Performed By: #### L 100.0100 ####[facility] [address] [place], [address] WBC (Leukocytes) 8.1 10*3/uL Normal 4.4-11.0 [facility] Comment on above: Performed By: #### L 100.0100 ####[facility] [address] [place], [address] Discharge Instructionon Discharge Instruction [facility] [address] [place] [address]Sqtwpsril Mgzfqkjvzwm09/04/17 0052MR#: [id number] Acct: [id number]: BASSEM DAWSON Rep #: [id number]: 1985 32 From: Meredith WrenCP: Charlotte Campa MD Status: REG ERED Disposition- Plan for ED Patient:Chief Complaint: Male Pain/InjuryInstruction s: ED Hemorrhoids, ED ProstatitisPrescriptio ns:Hydrocodone Bitart/Apap 5-325 [[place] 5/325] 1 - 2 tablet PO Q4H PRN PRN #7 tabletPRN Reason: PainHydrocortisone [Anusol Hc] 25 mg RECTAL BID PRN PRN #14 suppos.PRN Reason: PainSmz/Tmp Ds [Bactrim Ds] 1 tablet PO BID #14 tabletReferrals:Bernardo Carrington MD [Primary Care Provider] - 3-5 DaysWhat to do if you have ProblemsFor any increased pain, shortness of breath, bleeding, nausea or vomiting, chest pain, or anyunexpected problems, contact your Primary Care Provider. Call [facility] ([phone])or report to the closest Emergency Room.Call 911 if necessary.07/09/1751 Date Meredith Del Toro Signature (If Indicated): Date __CC: Charlotte Campa MD Normal [facility] Discharge Instruction [facility] [address] [facility] [place], [place] [address]Zgzzwxrrd Lbkvkpxffyi96/04/17 0050MR#: [id number] Acct: [id number]: BASSEM DAWSON Rep #: [id number]: 1985 32 From: Meredith Duarte: Charlotte Campa MD Status: REG ERED Disposition- Plan for ED Patient:Chief Complaint: Male Pain/InjuryInstruction s: ED Prostatitis, ED HemorrhoidsPrescriptio ns:Hydrocodone Bitart/Apap 5-325 [[place] 5/325] 1 - 2 tablet PO Q4H PRN PRN #7 tabletPRN Reason: PainHydrocortisone [Anusol Hc] 25 mg RECTAL BID PRN PRN #14 suppos.PRN Reason: PainSmz/Tmp Ds [Bactrim Ds] 1 tablet PO BID #14 tabletReferrals:Bernardo Carrington MD [Primary Care Provider] - 3-5 DaysWhat to do if you have ProblemsFor any increased pain, shortness of breath, bleeding, nausea or vomiting, chest pain, or anyunexpected problems, contact your Primary Care Provider. Call [facility] ([phone])or report to the closest Emergency Room.Call 911 if necessary.07/09/17 005 Date Meredith Del Toro Signature (If Indicated): Date __CC: Charlotte Campa MD Normal [facility] Emergency Department Summary on 07-09-2017 Emergency Department Summary [facility] [address] [place], [place] [address]Ludxmkfod Department Toqwgxu30/04/17 0046MR#: [id number] Acct: [id number]: BASSEM DAWSON Rep #: [id number]: 1985 32 From: Meredith SantamariayPCP: Charlotte Campa MD Status: REG ER- ER Visit SummaryDate of Service: 07/09/17Chief Complaint: [Rectal pain]History of Present Illness: The patient is a 32 M [presents the emergency department withrectal pain. It started this morning he was of work he got sudden onset severe pain shootingthrough his rectum up. It made him nauseated and dizzy and break out into a sweat. Since thattime he has had a dull ache in his rectum. He was seen at urgent care and had severe pain onrectal exam they referred him to the emergency department. She had no fevers or chills nonausea or vomiting except with the severe pain. No dysuria. No penile discharge. No swellingof the perineum no injuries.]Physical Examination: []Blood pressure 155/91 other vitals within normal limitsWell nourished male in no acute distressRegular rate and rhythm no murmursClear to auscultation bilaterallySoft he has mild tenderness in the left lower abdomen and pelvis normal bowel sounds no reboundor guarding no massesRectal exam is normal externally he has exquisite tenderness to palpation there is no masses orlumpsPatient is alert and oriented and appropriateTest Results: []Emergency Department Course and Treatment: [There are no palpable hemorrhoid. Concerned aboutpossible deeper abscess given the level of the pain he has. CT of the abdomen and pelvis wasobtained and was normal. Screening labs were normal. He will be given Anusol cream as well asBactrim for possible prostatitis. He will [facility] with [facility] in 2-3 days forcontinued symptoms]Treatment Plan: []Disposition: Discharge]Impression: [Rectal pain]ED Disposition- Plan for ED Patient:Chief Complaint: Male Pain/InjuryReferrals:Bernardo Ortiz MD [Primary Care Provider] -What to do if you have ProblemsFor any increased pain, shortness of breath, bleeding, nausea or vomiting, chest pain, or anyunexpected problems, contact your Primary Care Provider. Call [facility] ([phone])or report to the closest Emergency Room.Call 911 if necessary.07/09/17 0050 Date [facility] Signature (If Indicated): Date __CC: Charlotte Campa MD [facility] Encounters Encounter Date Encounter Type Care Provider Facility Start: 12-05-2023 End: 12-05-2023 Emergency department patient visit [facility] Facility:[facility] Start: 12-05-2023 End: 12-05-2023 ambulatory ANTONI CORONA Facility:[facility] Start: 05-11-2023 End: 05-11-2023 ambulatory Christian CORONA Facility:[facility] Start: 12-28-2022 End: 12-28-2022 Emergency department patient visit None Provider Facility:[facility] Start: 07-08-2017 End: 07-09-2017 Emergency department patient visit Meredith Goldberg Facility:[facility] Payers Date Payer Category Payer Unknown [id number] 2016 Unknown [id number] 1985 Unknown [id number] [id number] 1985 Unknown [id number] 2.16.8 [id number] 1985 Unknown [id number] 2.16.8 [id number] 1985 Unknown [id number] 2.16.8 [id number] Clinical Note 12-05-2023 Note Date & Type Note Facility 12-05-2023 Note Education Materials Cardiovascular Hypertension, Adult Blood pressure 128/80 Your blood pressure was noted to be elevated here in the emergency room. Monitor your blood pressure and follow-up with your primary care physician to review those readings. Return to the emergency department for any worsening symptoms. Hypertension is another name for high blood pressure. High blood pressure forces your heart to work harder to pump blood. This can cause problems over time. There are two numbers in a blood pressure reading. There is a top number (systolic) over a bottom number (diastolic). It is best to have a blood pressure that is below 120/80. What are the causes? The cause of this condition is not known. Some other conditions can lead to high blood pressure. What increases the risk? Some lifestyle factors can make you more likely to develop high blood pressure: ? Smoking. ? Not getting enough exercise or physical activity. ? Being overweight. ? Having too much fat, sugar, calories, or salt (sodium) in your diet. ? Drinking too much alcohol. Other risk factors include: ? Having any of these conditions: ? Heart disease. ? Diabetes. ? High cholesterol. ? Kidney disease. ? Obstructive sleep apnea. ? Having a family history of high blood pressure and high cholesterol. ? Age. The risk increases with age. ? Stress. What are the signs or symptoms? High blood pressure may not cause symptoms. Very high blood pressure (hypertensive crisis) may cause: ? Headache. ? Fast or uneven heartbeats (palpitations). ? Shortness of breath. ? Nosebleed. ? Vomiting or feeling like you may vomit (nauseous). ? Changes in how you see. ? Very bad chest pain. ? Feeling dizzy. ? Seizures. How is this treated? ? This condition is treated by making healthy lifestyle changes, such as: ? Eating healthy foods. ? Exercising more. ? Drinking less alcohol. ? Your doctor may prescribe medicine if lifestyle changes do not help enough and if: ? Your top number is above 130. ? Your bottom number is above 80. ? Your personal target blood pressure may vary. Follow these instructions at home: Eating and drinking ? If told, follow the DASH eating plan. To follow this plan: ? Fill one half of your plate at each meal with fruits and vegetables. ? Fill one fourth of your plate at each meal with whole grains. Whole grains include whole-wheat pasta, brown rice, and whole-grain bread. ? Eat or drink low-fat dairy products, such as skim milk or low-fat yogurt. ? Fill one fourth of your plate at each meal with low-fat (lean) proteins. Low-fat proteins include fish, chicken without skin, eggs, beans, and tofu. ? Avoid fatty meat, cured and processed meat, or chicken with skin. ? Avoid pre-made or processed food. ? Limit the amount of salt in your diet to less than 1,500 mg each day. ? Do not drink alcohol if: ? Your doctor tells you not to drink. ? You are , may be , or are planning to become . ? If you drink alcohol: ? Limit how much you have to: ? 0?1 drink a day for women. ? 0?2 drinks a day for men. ? Know how much alcohol is in your drink. In the [place] one drink equals one 12 oz bottle of beer (355 mL), one 5 oz glass of wine (148 mL), or one 1? oz glass of hard liquor (44 mL). Lifestyle ? Work with your doctor to stay at a healthy weight or to lose weight. Ask your doctor what the best weight is for you. ? Get at least 30 minutes of exercise that causes your heart to beat faster (aerobic exercise) most days of the week. This may include walking, swimming, or biking. ? Get at least 30 minutes of exercise that strengthens your muscles (resistance exercise) at least 3 days a week. This may include lifting weights or doing Pilates. ? Do not smoke or use any products that contain nicotine or tobacco. If you need help quitting, ask your doctor. ? Check your blood pressure at home as told by your doctor. ? Keep all follow-up visits. Medicines ? Take popj-srg-csjrnax and prescription medicines only as told by your doctor. Follow directions carefully. ? Do not skip doses of blood pressure medicine. The medicine does not work as well if you skip doses. Skipping doses also puts you at risk for problems. ? Ask your doctor about side effects or reactions to medicines that you should watch for. Contact a doctor if: ? You think you are having a reaction to the medicine you are taking. ? You have headaches that keep coming back. ? You feel dizzy. ? You have swelling in your ankles. ? You have trouble with your vision. Get help right away if: ? You get a very bad headache. ? You start to feel mixed up (confused). ? You feel weak or numb. ? You feel faint. ? You have very bad pain in your: ? Chest. ? Belly (abdomen). ? You vomit more than once. ? You have trouble breathing. These symptoms may be an em (more content not included)... [facility] Clinical Note 12-05-2023 Note Date & Type Note Facility 12-05-2023 Note Patient Education Materials Foll ows: [facility] Clinical Note 05-11-2023 Note Date & Type Note Facility 05-11-2023 Note Patient Education Ma terials Follows: Dental Pain Dental pain is often a sign that something is wrong with your teeth or gums. It is also something that can occur following dental treatment. If you have dental pain, it is important to contact your dental care provider, especially if the cause of the pain has not been determined. Dental pain may be of varying intensity and can be caused by many things, including: ? Tooth decay (cavities or caries). Cavities are caused by bacteria that produce acids that irritate the nerve of your tooth, making it sensitive to air and hot or cold temperatures. This eventually causes discomfort or pain. ? Abscess or infection. Once the bacteria reach the inner part of the tooth (pulp), a bacterial infection (dental abscess) can occur. Pus typically collects at the end of the root of a tooth. ? Injury. ? A crack in the tooth. ? Gum recession exposing the root, and possibly the nerves, of a tooth. ? Gum (periodontal)disease. ? Abnormal grinding or clenching. ? Poor or improper home care. ? An unknown reason (idiopathic). Your pain may be mild or severe. It may occur when you are: ? Chewing. ? Exposed to hot or cold temperatures. ? Eating or drinking sugary foods or beverages, such as soda or candy. Your pain may be constant, or it may come and go without cause. Follow these instructions at home: The following actions may help to lessen any discomfort that you are feeling before or after getting dental care. Medicines ? Take gruo-bos-dhkuayx and prescription medicines only as told by your dental care provider. ? If you were prescribed an antibiotic medicine, take it as told by your dental care provider. Do not stop taking the antibiotic even if you start to feel better. Eating and drinking Avoid foods or drinks that cause you pain, such as: ? Very hot or very cold foods or drinks. ? Sweet or sugary foods or drinks. Managing pain and swelling ? Ice can sometimes be used to reduce pain and swelling, especially if the pain is following dental treatment. ? If directed, put ice on the painful area of your face. To do this: ? Put ice in a plastic bag. ? Place a towel between your skin and the bag. ? Leave the ice on for 20 minutes, 2?3 times a day. ? Remove the ice if your skin turns bright red. This is very important. If you cannot feel pain, heat, or cold, you have a greater risk of damage to the area. Brushing your teeth ? To keep your mouth and gums healthy, brush your teeth twice a day using a fluoride toothpaste. ? Use a toothpaste made for sensitive teeth as directed by your dental care provider, especially if the root is exposed. ? Always brush your teeth with a soft-bristled toothbrush. This will help prevent irritation to your gums. General instructions ? Floss at least once a day. ? Do not apply heat to the outside of the face. ? Gargle with a mixture of salt and water 3?4 times a day or as needed. To make salt water, completely dissolve ??1 tsp (3?6 g) of salt in 1 cup (237 mL) of warm water. ? Keep all follow-up visits. This is important. Contact a dental care provider if: ? You have any unexplained dental pain. ? Your pain is not controlled with medicines. ? Your symptoms get worse. ? You have new symptoms. Get help right away if: ? You are unable to open your mouth. ? You are having trouble breathing or swallowing. ? You have a fever. ? You notice that your face, neck, or jaw is swollen. These symptoms may represent a serious problem that is an emergency. Do not wait to see if the symptoms will go away. Get medical help right away. Call your local emergency services (911 in the [place] Do not drive yourself to the hospital. Summary ? Dental pain may be caused by many things, including tooth decay and infection. ? Your pain may be mild or severe. ? Take odio-gjk-fgutywa and prescription medicines only as told by your dental care provider. ? Watch your dental pain for any changes. Let your dental care provider know if your symptoms get worse. This information is not intended to replace advice given to you by your health care provider. Make sure you discuss any questions you have with your health care provider. Document Revised: 05/27/2021 Document Reviewed: 05/27/2021 [employer] Patient Education ? 2022 [employer]. [facility] Clinical Note 12-28-2022 Note Date & Type Note Facility 12-28-2022 Note Education Materials Infectious Disease Pharyngitis Pharyngitis is inflammation of the throat (pharynx). It is a very common cause of sore throat. Pharyngitis can be caused by a bacteria, but it is usually caused by a virus. Most cases of pharyngitis get better on their own without treatment. What are the causes? This condition may be caused by: ? Infection by viruses (viral). Viral pharyngitis spreads easily from person to person (is contagious) through coughing, sneezing, and sharing of personal items or utensils such as cups, forks, spoons, and toothbrushes. ? Infection by bacteria (bacterial). Bacterial pharyngitis may be spread by touching the nose or face after coming in contact with the bacteria, or through close contact, such as kissing. ? Allergies. Allergies can cause buildup of mucus in the throat (post-nasal drip), leading to inflammation and irritation. Allergies can also cause blocked nasal passages, forcing breathing through the mouth, which dries and irritates the throat. What increases the risk? You are more likely to develop this condition if: ? You are 5?24 years old. ? You are exposed to crowded environments such as daycare, school, or dormitory living. ? You live in a cold climate. ? You have a weakened disease-fighting (immune) system. What are the signs or symptoms? Symptoms of this condition vary by the cause. Common symptoms of this condition include: ? Sore throat. ? Fatigue. ? Low-grade fever. ? Stuffy nose (nasal congestion) and cough. ? Headache. Other symptoms may include: ? Glands in the neck (lymph nodes) that are swollen. ? Skin rashes. ? Plaque-like film on the throat or tonsils. This is often a symptom of bacterial pharyngitis. ? Vomiting. ? Red, itchy eyes (conjunctivitis). ? Loss of appetite. ? Joint pain and muscle aches. ? Enlarged tonsils. How is this diagnosed? This condition may be diagnosed based on your medical history and a physical exam. Your health care provider will ask you questions about your illness and your symptoms. A swab of your throat may be done to check for bacteria (rapid strep test). Other lab tests may also be done, depending on the suspected cause, but these are rare. How is this treated? Many times, treatment is not needed for this condition. Pharyngitis usually gets better in 3?4 days without treatment. Bacterial pharyngitis may be treated with antibiotic medicines. Follow these instructions at home: Medicines ? Take tgrt-kex-wizyckn and prescription medicines only as told by your health care provider. ? If you were prescribed an antibiotic medicine, take it as told by your health care provider. Do not stop taking the antibiotic even if you start to feel better. ? Use throat sprays to soothe your throat as told by your health care provider. ? Children can get pharyngitis. Do not give your child aspirin because of the association with Yudelka's syndrome. Managing pain To help with pain, try: ? Sipping warm liquids, such as broth, herbal tea, or warm water. ? Eating or drinking cold or frozen liquids, such as frozen ice pops. ? Gargling with a mixture of salt and water 3?4 times a day or as needed. To make salt water, completely dissolve ??1 tsp (3?6 g) of salt in 1 cup (237 mL) of warm water. ? Sucking on hard candy or throat lozenges. ? Putting a cool-mist humidifier in your bedroom at night to moisten the air. ? Sitting in the bathroom with the door closed for 5?10 minutes while you run hot water in the shower. General instructions ? Do not use any products that contain nicotine or tobacco. These products include cigarettes, chewing tobacco, and vaping devices, such as e-cigarettes. If you need help quitting, ask your health care provider. ? Rest as told by your health care provider. ? Drink enough fluid to keep your urine pale yellow. How is this prevented? To help prevent becoming infected or spreading infection: ? Wash your hands often with soap and water for at least 20 seconds. If soap and water are not available, use hand heavy antiarmor weapons infantryman. ? Do not touch your eyes, nose, or mouth with unwashed hands, and wash hands after touching these areas. ? Do not share cups or eating utensils. ? Avoid close contact with people who are sick. Contact a health care provider if: ? You have large, tender lumps in your neck. ? You have a rash. ? You cough up green, yellow-brown, or bloody mucus. Get help right away if: ? Your neck becomes stiff. ? You drool or are unable to swallow liquids. ? You cannot drink or take medicines without vomiting. ? You have severe pain that does not go away, even after you take medicine. ? You have trouble breathing, and it is not caused by a stuffy nose. ? You have new pain and swelling in your joints such as the knees, ankles, wrists, or elbows. These symptoms may represent a ser (more content not included)... [facility] Summary Purpose Family History No Family History Records FoundNo Family History Records FoundNo Family History Records FoundNo Family History Records Found Advance Directives No Advanced Directives Records FoundNo Advanced Directives Records FoundNo Advanced Directives Records FoundNo Advanced Directives Records Found Additional Source Comments (unrecognized sect ion and content) No Status Records FoundNo Status Records FoundNo Status Records FoundNo Status Records Found INFORMATION SOURCE (unrecogn ized section and content) DATE CREATED AUTHOR 02/28/2018 [facility] DATE CREATED AUTHOR AUTHOR'S ORGANIZ ATION 10/03/2019 [facility] DATE CREATED AUTHOR AUTHOR'S ORGANIZ ATION 07/09/2020 [facility] ([place]) DATE CREATED AUTHOR AUTHOR'S ORGANIZ ATION 12/12/2023 [facility] FOR RECORDS PERTAINING TO PATIENTS WHO ARE OR HAVE BEEN ENROLLED IN A CHEMICAL DEPENDENCY/SUBSTANCEABUSE PROGRAM, SOME INFORMATION MAY BE OMITTED. This clinical summary was aggregated from multiple sources. Caution should be exercised in using it in the provision of clinical care. This summary normalizes information from multiple sources, and as a consequence, information in this document may materially change the coding, format and clinical context of patient data. In addition, data may be omitted in some cases. CLINICAL DECISIONS SHOULD BE BASED ON THE PRIMARY CLINICAL RECORDS. [employer] provides no warranty or guarantee of the accuracy or completeness of information in this document.
--- NOTE | 2025-05-06 09:57 | RAD_ITS ---
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 No fracture seen; sclerosis of the proximal tibia medially likely variation of the bone mineralization. Impaction fracture favored less. Correlate with point tenderness. Joints: Normal Effusion: No effusion. Soft tissues: Soft tissues are unremarkable. Other: No foreign body RAD/Knee 4 or More Views IMPRESSION: No definite acute abnormality. Correlate with point tenderness. If there is p oint tenderness or persistent pain despite conservative therapy, MRI would be suggested to evaluate for any internal deran gement. Reading Location: [id number]
[2025-05-06] MEDS: HYDROcodone Bitartrate/Apap 5/325 Tablet PO (10:03)
== END 2025-05-06 12:03 | disposition home or self-care (01) ==
PROVIDERS: Emergency Provider Emergency Medicine; Visit Provider Emergency Medicine
DX: S83.92XA Sprain of unspecified site of left knee, initial encounter (principal); W19.XXXA Unspecified fall, initial encounter
CPT/HCPCS: 73564; 99283